=== PATIENT | female | born 1950 | race Caucasian/White ===

== ENCOUNTER 2019-02-04 11:21 | Observation (INO) ==
[2019-02-04] MEDS ORDERED: 0.9 % Sodium Chloride 1,000 ML IVC ONE ×2 (11:56→13:06)
[2019-02-04 12:33] LABS: Hematocrit 35.4 % (35.3-44.9); Hemoglobin 11.6 g/dL (11.5-15.4); Mean Corpuscular HGB Conc 32.8 g/dL (31.6-35.5); Mean Corpuscular Hemoglobin 30.9 pg (28.0-33.3); Mean Corpuscular Volume 94.1 fL (83.0-100.0); Platelet Count 222 K/mcL (140-400); Red Blood Count 3.76 M/mcL (3.82-4.97); Red Cell Distribution Width 13.3 % (11.5-14.5)
[2019-02-04 12:40] LABS: INR 1.2; Prothrombin Time 13.8 Seconds (9.4-12.1)
[2019-02-04 12:52] LABS: Albumin/Globulin Ratio 1.4 (1.1-2.2); Bilirubin,Direct 0.2 mg/dL (0.0-0.2); Bilirubin,Indirect 0.7 mg/dL (0.0-1.0); Bilirubin,Total 0.9 mg/dL (0.3-1.0); Calcium 8.7 mg/dL (8.6-10.3); Globulin 2.9 g/dL (2.4-3.5); Phosphorous 3.4 mg/dL (2.7-4.5); Potassium 3.8 mEq/L (3.5-5.1); Total Protein 6.9 g/dL (6.4-8.9); Troponin I 0.03 ng/mL (< 0.04)
[2019-02-04] MEDS ORDERED: cefTRIAXone 1,000 MG in Water for inj. (sterile) 10 ML IVP ONE (13:01)
[2019-02-04] MEDS ORDERED: Azithromycin 500 MG in 0.9 % Sodium Chloride 250 ML IVPB ONE (13:01)
[2019-02-04 13:39] LABS: Eosinophils # 3.5 K/mcL (0.0-0.6); Lymphocytes # 4.2 K/mcL (0.6-4.6); Monocytes # 1.5 K/mcL (0.0-1.3); Neutrophils # 12.8 K/mcL (1.6-8.9)
[2019-02-04 13:40] LABS: Platelet Estimate Normal (Normal)
[2019-02-04 14:43] LABS: Bilirubin,Urine Negative (Negative); Blood,Urine Negative (Negative); Clarity,Urine Clear (Clear); Color,Urine Yellow (Yellow); Glucose,Urine (UA) Normal (Normal); Ketones,Urine Negative (Negative); Leukocyte Esterase,Urine Negative (Negative); Nitrite,Urine Negative (Negative); PH,Urine 6.5 pH Units (5.0-8.0); Protein,Urine Negative (Neg-Trace); Specific Gravity,Urine 1.009 (1.010-1.025); Urobilinogen,Urine Normal (Normal)
[2019-02-04] MEDS ORDERED: Naloxone 0.4 MG/ML INJ IVP PRN (15:14)
[2019-02-04] MEDS ORDERED: *HR* Dextrose 50 % in Water (Syg) 50 ML SYRINGE IVP PRN (18:03)
[2019-02-04] MEDS ORDERED: Dextrose Gel 15 GM/37.5 ML TUBE PO PRN ×2 (18:03)
[2019-02-04] MEDS ORDERED: D5% in Water 1,000 ML IVC PRN (18:03)
[2019-02-04] MEDS: MetroNIDAZOLE 500 MG/100 ML 500 MG/100 ML BAG IVPB SCH (18:53)
[2019-02-04] MEDS: Ipratropium Neb 0.5 MG NEBULIZER IH SCH ×2 (20:16→22:15)
[2019-02-04] MEDS: *HR* LORazepam 1 MG TABLET PO SCH (20:56)
[2019-02-04] MEDS: *HR* Heparin 5,000 UNIT/ML VIAL SQ SCH (20:56)
[2019-02-04] MEDS: Gabapentin 300 MG CAPSULE PO SCH (20:56)
[2019-02-04] MEDS: Insulin LISPRO 300 UNITS/3 ML VIAL SQ SCH (20:57)
[2019-02-04] MEDS ORDERED: Ipratropium Neb 0.5 MG NEBULIZER IH SCH (22:00)
[2019-02-04] MEDS: Budesonide/Formoterol 160/4.5 1 PUFF INH IH SCH (22:15)
[2019-02-05] MEDS: MetroNIDAZOLE 500 MG/100 ML 500 MG/100 ML BAG IVPB SCH ×2 (00:06→08:19)
[2019-02-05] MEDS: Ipratropium Neb 0.5 MG NEBULIZER IH SCH ×4 (04:24→21:45)
[2019-02-05] MEDS: *HR* Heparin 5,000 UNIT/ML VIAL SQ SCH ×3 (05:02→21:33)
[2019-02-05 05:24] LABS: Basophils # 0.1 K/mcL (0.0-0.2); Basophils % 0.3 %; Eosinophils % 25.9 %; Hematocrit 33.9 % (35.3-44.9); Hemoglobin 11.1 g/dL (11.5-15.4); Immature Granulocytes % 0.5 % (0-4); Lymphocytes # 2.3 K/mcL (0.6-4.6); Lymphocytes % 14.7 %; Mean Corpuscular HGB Conc 32.7 g/dL (31.6-35.5); Mean Corpuscular Volume 94.7 fL (83.0-100.0); Mean Platelet Volume 11.1 fL (9.4-12.4); Monocytes # 1.2 K/mcL (0.0-1.3); Monocytes % 7.6 %; Neutrophils # 7.8 K/mcL (1.6-8.9); Platelet Count 201 K/mcL (140-400); Red Blood Count 3.58 M/mcL (3.82-4.97); Red Cell Distribution Width 13.3 % (11.5-14.5); White Blood Count 15.3 K/mcL (4.3-11.1)
[2019-02-05 05:47] LABS: Calcium 8.3 mg/dL (8.6-10.3); Magnesium 2.2 mg/dL (1.6-2.6); Potassium 3.8 mEq/L (3.5-5.1)
[2019-02-05 06:01] LABS: Platelet Estimate Normal (Normal)
[2019-02-05] MEDS: Insulin LISPRO 300 UNITS/3 ML VIAL SQ SCH ×4 (08:06→21:33)
[2019-02-05] MEDS: *HR* LORazepam 1 MG TABLET PO SCH ×3 (08:18→21:32)
[2019-02-05] MEDS: Gabapentin 300 MG CAPSULE PO SCH ×3 (08:18→21:30)
[2019-02-05] MEDS: Isosorbide MONOnitrate (24 HR) 30 MG TAB.ER.24H PO SCH (08:18)
[2019-02-05] MEDS: BuPROPion XL (24 HR) 150 MG TABLET PO SCH (08:18)
[2019-02-05] MEDS: Primidone 50 MG TABLET PO SCH (08:18)
[2019-02-05] MEDS: MethylPREDNISolone 40 MG/ML VIAL IVP SCH (08:18)
[2019-02-05] MEDS: Aspirin 81 MG TAB.CHEW PO SCH (08:18)
[2019-02-05] MEDS: traMADol 50 MG TABLET PO PRN ×2 (08:18→21:30)
[2019-02-05] MEDS: Famotidine 20 MG TABLET PO SCH (08:18)
[2019-02-05] MEDS ORDERED: levoFLOXacin 750 MG/150 ML 750 MG/150 ML BAG IVPB SCH (09:00)
[2019-02-05] MEDS ORDERED: NON-FORMULARY MEDICATION 1 EACH EACH (Mirabegron [Myrbetriq] 50 MG) PO SCH (09:00)
[2019-02-05] MEDS: Azithromycin 500 MG in 0.9 % Sodium Chloride 250 ML IVPB SCH (09:47)
[2019-02-05] MEDS: Budesonide/Formoterol 160/4.5 1 PUFF INH IH SCH ×2 (10:38→21:45)
[2019-02-05] MEDS: cefTRIAXone 2,000 MG in 0.9 % Sodium Chloride Mini Bag 100 ML IVPB SCH (12:00)
[2019-02-06] MEDS: Ipratropium Neb 0.5 MG NEBULIZER IH SCH ×4 (03:55→22:34)
[2019-02-06 04:17] LABS: Basophils # 0.1 K/mcL (0.0-0.2); Basophils % 0.4 %; Eosinophils # 0.1 K/mcL (0.0-0.6); Eosinophils % 0.4 %; Hematocrit 33.7 % (35.3-44.9); Hemoglobin 10.8 g/dL (11.5-15.4); Immature Granulocytes % 1.8 % (0-4); Lymphocytes # 2.3 K/mcL (0.6-4.6); Lymphocytes % 17.3 %; Mean Corpuscular Hemoglobin 30.5 pg (28.0-33.3); Mean Corpuscular Volume 95.2 fL (83.0-100.0); Mean Platelet Volume 10.8 fL (9.4-12.4); Monocytes # 1.1 K/mcL (0.0-1.3); Monocytes % 8.3 %; Neutrophils # 9.3 K/mcL (1.6-8.9); Platelet Count 246 K/mcL (140-400); Red Blood Count 3.54 M/mcL (3.82-4.97); Red Cell Distribution Width 12.8 % (11.5-14.5); Segmented Neutrophils % 71.8 %
[2019-02-06 04:40] LABS: BUN/Creatinine Ratio 16 (6-26); Blood Urea Nitrogen 17 mg/dL (8-23); Calcium 9.1 mg/dL (8.6-10.3); Carbon Dioxide 24 mEq/L (23-29); Chloride 107 mEq/L (98-107); Glucose 140 mg/dL (70-105); Osmolality,Calculated 288 (280-300); Potassium 4.3 mEq/L (3.5-5.1); Sodium 137 mEq/L (136-145); eGFR For African Americans > 60 (> 60); eGFR For Non-African Americans 51 (> 60)
[2019-02-06] MEDS: *HR* Heparin 5,000 UNIT/ML VIAL SQ SCH ×3 (05:34→20:39)
[2019-02-06] MEDS: Isosorbide MONOnitrate (24 HR) 30 MG TAB.ER.24H PO SCH (08:30)
[2019-02-06] MEDS: BuPROPion XL (24 HR) 150 MG TABLET PO SCH (08:31)
[2019-02-06] MEDS: Gabapentin 300 MG CAPSULE PO SCH ×3 (08:31→20:39)
[2019-02-06] MEDS: Aspirin 81 MG TAB.CHEW PO SCH (08:31)
[2019-02-06] MEDS: Famotidine 20 MG TABLET PO SCH (08:31)
[2019-02-06] MEDS: MethylPREDNISolone 40 MG/ML VIAL IVP SCH (08:31)
[2019-02-06] MEDS: *HR* LORazepam 1 MG TABLET PO SCH ×3 (08:31→20:39)
[2019-02-06] MEDS: Insulin LISPRO 300 UNITS/3 ML VIAL SQ SCH ×4 (08:32→20:38)
[2019-02-06] MEDS: Azithromycin 500 MG in 0.9 % Sodium Chloride 250 ML IVPB SCH (08:32)
[2019-02-06] MEDS: cefTRIAXone 2,000 MG in 0.9 % Sodium Chloride Mini Bag 100 ML IVPB SCH (08:32)
[2019-02-06] MEDS: Budesonide/Formoterol 160/4.5 1 PUFF INH IH SCH ×2 (10:49→22:34)
[2019-02-06] MEDS: traMADol 50 MG TABLET PO PRN (11:03)
[2019-02-07] MEDS: Ipratropium Neb 0.5 MG NEBULIZER IH SCH ×4 (04:11→21:43)
[2019-02-07] MEDS: *HR* Heparin 5,000 UNIT/ML VIAL SQ SCH ×3 (05:04→20:46)
[2019-02-07 06:30] LABS: Basophils # 0.1 K/mcL (0.0-0.2); Basophils % 0.4 %; Eosinophils # 0.1 K/mcL (0.0-0.6); Eosinophils % 0.4 %; Hematocrit 34.9 % (35.3-44.9); Immature Granulocytes % 2.4 % (0-4); Lymphocytes # 3.6 K/mcL (0.6-4.6); Lymphocytes % 25.4 %; Mean Corpuscular HGB Conc 31.5 g/dL (31.6-35.5); Mean Corpuscular Hemoglobin 30.4 pg (28.0-33.3); Mean Corpuscular Volume 96.4 fL (83.0-100.0); Mean Platelet Volume 10.5 fL (9.4-12.4); Monocytes # 0.8 K/mcL (0.0-1.3); Neutrophils # 9.2 K/mcL (1.6-8.9); Platelet Count 285 K/mcL (140-400); Red Blood Count 3.62 M/mcL (3.82-4.97); Red Cell Distribution Width 13.2 % (11.5-14.5); Segmented Neutrophils % 65.4 %; White Blood Count 14.1 K/mcL (4.3-11.1)
[2019-02-07 06:53] LABS: BUN/Creatinine Ratio 17 (6-26); Blood Urea Nitrogen 18 mg/dL (8-23); Calcium 9.2 mg/dL (8.6-10.3); Carbon Dioxide 23 mEq/L (23-29); Chloride 110 mEq/L (98-107); Glucose 128 mg/dL (70-105); Osmolality,Calculated 296 (280-300); Potassium 4.1 mEq/L (3.5-5.1); Sodium 141 mEq/L (136-145); eGFR For African Americans > 60 (> 60); eGFR For Non-African Americans 52 (> 60)
[2019-02-07] MEDS: cefTRIAXone 2,000 MG in 0.9 % Sodium Chloride Mini Bag 100 ML IVPB SCH (08:16)
[2019-02-07] MEDS: Famotidine 20 MG TABLET PO SCH (08:16)
[2019-02-07] MEDS: Isosorbide MONOnitrate (24 HR) 30 MG TAB.ER.24H PO SCH (08:16)
[2019-02-07] MEDS: Insulin LISPRO 300 UNITS/3 ML VIAL SQ SCH ×4 (08:16→20:46)
[2019-02-07] MEDS: MethylPREDNISolone 40 MG/ML VIAL IVP SCH (08:16)
[2019-02-07] MEDS: Gabapentin 300 MG CAPSULE PO SCH ×3 (08:17→20:46)
[2019-02-07] MEDS: BuPROPion XL (24 HR) 150 MG TABLET PO SCH (08:17)
[2019-02-07] MEDS: Aspirin 81 MG TAB.CHEW PO SCH (08:17)
[2019-02-07] MEDS: *HR* LORazepam 1 MG TABLET PO SCH ×3 (08:17→20:46)
[2019-02-07] MEDS: Benzonatate 100 MG CAPSULE PO PRN ×2 (08:26→16:16)
[2019-02-07] MEDS: Azithromycin 500 MG in 0.9 % Sodium Chloride 250 ML IVPB SCH (08:39)
[2019-02-07] MEDS: Budesonide/Formoterol 160/4.5 1 PUFF INH IH SCH ×2 (10:36→21:43)
[2019-02-08] MEDS: Ipratropium Neb 0.5 MG NEBULIZER IH SCH ×2 (04:01→09:58)
[2019-02-08] MEDS: *HR* Heparin 5,000 UNIT/ML VIAL SQ SCH (05:28)
[2019-02-08 05:50] LABS: Basophils # 0.1 K/mcL (0.0-0.2); Basophils % 0.5 %; Eosinophils # 0.1 K/mcL (0.0-0.6); Eosinophils % 0.6 %; Hematocrit 36.6 % (35.3-44.9); Hemoglobin 11.6 g/dL (11.5-15.4); Immature Granulocytes % 3.7 % (0-4); Lymphocytes # 4.8 K/mcL (0.6-4.6); Lymphocytes % 33.4 %; Mean Corpuscular HGB Conc 31.7 g/dL (31.6-35.5); Mean Corpuscular Hemoglobin 30.3 pg (28.0-33.3); Mean Corpuscular Volume 95.6 fL (83.0-100.0); Mean Platelet Volume 10.4 fL (9.4-12.4); Monocytes % 6.8 %; Neutrophils # 7.9 K/mcL (1.6-8.9); Platelet Count 295 K/mcL (140-400); Red Blood Count 3.83 M/mcL (3.82-4.97); Red Cell Distribution Width 13.3 % (11.5-14.5); White Blood Count 14.3 K/mcL (4.3-11.1)
[2019-02-08 06:14] LABS: Calcium 9.3 mg/dL (8.6-10.3); Potassium 4.1 mEq/L (3.5-5.1)
[2019-02-08 07:05] VITALS: BP 138/77
[2019-02-08] MEDS: Azithromycin 500 MG in 0.9 % Sodium Chloride 250 ML IVPB SCH (08:11)
[2019-02-08] MEDS: MethylPREDNISolone 40 MG/ML VIAL IVP SCH (08:12)
[2019-02-08] MEDS: Benzonatate 100 MG CAPSULE PO PRN (08:12)
[2019-02-08] MEDS: cefTRIAXone 2,000 MG in 0.9 % Sodium Chloride Mini Bag 100 ML IVPB SCH (08:12)
[2019-02-08] MEDS: BuPROPion XL (24 HR) 150 MG TABLET PO SCH (08:13)
[2019-02-08] MEDS: Aspirin 81 MG TAB.CHEW PO SCH (08:13)
[2019-02-08] MEDS: Isosorbide MONOnitrate (24 HR) 30 MG TAB.ER.24H PO SCH (08:13)
[2019-02-08] MEDS: Famotidine 20 MG TABLET PO SCH (08:13)
[2019-02-08] MEDS: *HR* LORazepam 1 MG TABLET PO SCH (08:13)
[2019-02-08] MEDS: Insulin LISPRO 300 UNITS/3 ML VIAL SQ SCH (08:13)
[2019-02-08] MEDS: Gabapentin 300 MG CAPSULE PO SCH (08:13)
[2019-02-08] MEDS: Primidone 50 MG TABLET PO SCH (08:25)
[2019-02-08] MEDS: Budesonide/Formoterol 160/4.5 1 PUFF INH IH SCH (09:59)
[2019-02-09] MEDS ORDERED: Azithromycin 250 MG TABLET PO SCH (09:00)
== END 2019-02-08 10:13 | disposition home or self-care (01) ==
LOC: EMEROOARM 11:21 → 2ANU 11:21 → SUATTDRO 14:51 → 2ANU 15:46
PROVIDERS: ADMIT Internal Medicine; ATTEND Internal Medicine

== ENCOUNTER 2019-04-27 07:53 | Inpatient (IN) ==
[2019-04-27] MEDS ORDERED: Albuterol 2.5 MG/3 ML NEBULIZER IH PRN ×2 (08:16→09:54)
[2019-04-27] MEDS ORDERED: CeFAZolin Syr 2,000MG/20 ML 2,000 MG/20 ML SYRINGE IVPB ONE (08:16)
[2019-04-27] MEDS ORDERED: Ringers Solution, Lactated 1,000 ML IVC SCH (08:30)
[2019-04-27] MEDS ORDERED: *HR* Succinylcholine 200 MG/10 ML VIAL IVP ONE (08:59)
[2019-04-27] MEDS ORDERED: Lidocaine -MPF 2% 2 ML VIAL ONE (08:59)
[2019-04-27] MEDS ORDERED: Dexamethasone 4 MG/ML VIAL ONE (08:59)
[2019-04-27] MEDS ORDERED: Lidocaine HCL 4 ML Topical Solution (Laryng-O-Jet Kit Sterile Pak) TP ONE (08:59)
[2019-04-27] MEDS ORDERED: Ondansetron 4 MG/2 ML VIAL ONE (08:59)
[2019-04-27] MEDS ORDERED: *HR* FentaNYL (PF) 100 MCG/2 ML VIAL ONE ×2 (09:04→16:05)
[2019-04-27] MEDS ORDERED: *HR* Remifentanil 1 MG VIAL IVP ONE (09:04)
[2019-04-27] MEDS ORDERED: *HR* Propofol 200 MG/20 ML VIAL IVP ONE ×2 (09:04→15:46)
[2019-04-27] MEDS ORDERED: Acetaminophen IV 1,000 MG/100 ML INFUS..BTL IVPB ONE (09:13)
[2019-04-27] MEDS ORDERED: Ipratropium Neb 0.5 MG NEBULIZER IH PRN ×2 (09:54→17:37)
[2019-04-27] MEDS ORDERED: *HR* Meperidine 25 MG/ML SYRINGE IVP PRN (09:54)
[2019-04-27] MEDS ORDERED: Ondansetron 4 MG/2 ML VIAL IVP ONE (09:54)
[2019-04-27] MEDS ORDERED: *HR* OxyCODONE Immed Rel 5 MG TABLET PO PRN (09:54)
[2019-04-27] MEDS ORDERED: Bacitracin 50,000 UNIT, Polymyxin B Sulfate 500,000 UNIT, Sodium Chloride IRRigation 1,... IR ONE (10:10)
[2019-04-27] MEDS ORDERED: EPHEDrine 50 MG/ML VIAL ONE ×2 (11:02→13:56)
[2019-04-27] MEDS ORDERED: Propofol 500 MG/50 ML INFUS..BTL ONE (11:21)
[2019-04-27] MEDS ORDERED: Clindamycin 900 MG/50 ML 900 MG/50 ML IV.SOLN IVPB ONE (12:07)
[2019-04-27] MEDS ORDERED: *HR* PHENYLEPHRINE 1,000 MCG/10 ML SYRINGE IVP ONE ×4 (13:12→16:13)
[2019-04-27] MEDS: *HR* FentaNYL (PF) 100 MCG/2 ML VIAL IVP PRN ×2 (16:42→16:54)
[2019-04-27] MEDS ORDERED: Acetaminophen 325 MG TABLET PO PRN (17:37)
[2019-04-27] MEDS ORDERED: Naloxone 0.4 MG/ML INJ IVP PRN (17:37)
[2019-04-27] MEDS ORDERED: DICLOFENAC SODIUM TP PRN (17:37)
[2019-04-27] MEDS ORDERED: *HR* LORazepam 1 MG TABLET PO PRN (17:37)
[2019-04-27] MEDS ORDERED: Ondansetron 4 MG/2 ML VIAL IVP PRN (17:37)
[2019-04-27] MEDS: Budesonide/Formoterol 160/4.5 1 PUFF INH IH SCH (20:19)
[2019-04-27] MEDS: *HR* OxyCODONE Immed Rel 5 MG TABLET PO PRN (20:59)
[2019-04-27] MEDS: carvediloL 6.25 MG TABLET PO SCH (21:57)
[2019-04-27] MEDS: (Mirabegron [Myrbetriq] 50 MG) PO SCH (21:58)
[2019-04-27] MEDS: FluocinoNIDE 0.05% CRM 15 GM TUBE TP SCH (21:58)
[2019-04-28] MEDS ORDERED: Clindamycin 600 MG/50 ML 600 MG/50 ML IV.SOLN IVPB SCH
[2019-04-28] MEDS: Clindamycin 600 MG/50 ML 600 MG/50 ML IV.SOLN IVPB SCH ×2 (00:05→08:17)
[2019-04-28 02:29] LABS: Basophils % 0.3 %; Hematocrit 27.3 % (35.3-44.9); Immature Granulocytes % 0.5 % (0-4); Lymphocytes # 1.3 K/mcL (0.6-4.6); Mean Corpuscular HGB Conc 30.8 g/dL (31.6-35.5); Mean Corpuscular Hemoglobin 29.8 pg (28.0-33.3); Mean Corpuscular Volume 96.8 fL (83.0-100.0); Mean Platelet Volume 11.2 fL (9.4-12.4); Monocytes # 0.6 K/mcL (0.0-1.3); Monocytes % 5.2 %; Neutrophils # 9.6 K/mcL (1.6-8.9); Platelet Count 208 K/mcL (140-400); Red Blood Count 2.82 M/mcL (3.82-4.97); Red Cell Distribution Width 13.9 % (11.5-14.5); White Blood Count 11.6 K/mcL (4.3-11.1)
[2019-04-28 02:31] LABS: Hemoglobin 8.4 g/dL (11.5-15.4)
[2019-04-28] MEDS: Ringers Solution, Lactated 1,000 ML IVC SCH (06:04)
[2019-04-28] MEDS: carvediloL 6.25 MG TABLET PO SCH ×3 (07:05→15:32)
[2019-04-28] MEDS: Tiotropium 18 MCG inhalation IH SCH (07:50)
[2019-04-28] MEDS: Budesonide/Formoterol 160/4.5 1 PUFF INH IH SCH ×2 (07:50→21:33)
[2019-04-28] MEDS: Aspirin 81 MG TAB.CHEW PO SCH (08:21)
[2019-04-28] MEDS: BuPROPion XL (24 HR) 150 MG TABLET PO SCH (08:31)
[2019-04-28] MEDS: *HR* OxyCODONE Immed Rel 5 MG TABLET PO PRN ×3 (08:31→21:56)
[2019-04-28] MEDS: Famotidine 20 MG TABLET PO SCH (08:31)
[2019-04-28] MEDS: Isosorbide MONOnitrate (24 HR) 30 MG TAB.ER.24H PO SCH (08:31)
[2019-04-28] MEDS: FluocinoNIDE 0.05% CRM 15 GM TUBE TP SCH ×2 (08:31→21:44)
[2019-04-28] MEDS ORDERED: Primidone 50 MG TABLET PO SCH (16:40)
[2019-04-28] MEDS: (Mirabegron [Myrbetriq] 50 MG) PO SCH (17:05)
[2019-04-29] MEDS: *HR* OxyCODONE Immed Rel 5 MG TABLET PO PRN ×3 (06:39→17:27)
[2019-04-29] MEDS: carvediloL 6.25 MG TABLET PO SCH ×2 (10:03→17:28)
[2019-04-29] MEDS: Isosorbide MONOnitrate (24 HR) 30 MG TAB.ER.24H PO SCH (10:03)
[2019-04-29] MEDS: Famotidine 20 MG TABLET PO SCH (10:03)
[2019-04-29] MEDS: Aspirin 81 MG TAB.CHEW PO SCH (10:03)
[2019-04-29] MEDS: BuPROPion XL (24 HR) 150 MG TABLET PO SCH (10:03)
[2019-04-29] MEDS: Budesonide/Formoterol 160/4.5 1 PUFF INH IH SCH ×2 (10:26→22:56)
[2019-04-29] MEDS: Tiotropium 18 MCG inhalation IH SCH (10:26)
[2019-04-29 10:33] LABS: Basophils # 0.1 K/mcL (0.0-0.2); Basophils % 0.7 %; Eosinophils # 0.6 K/mcL (0.0-0.6); Eosinophils % 3.9 %; Hematocrit 26.1 % (35.3-44.9); Hemoglobin 8.2 g/dL (11.5-15.4); Immature Granulocytes % 0.5 % (0-4); Lymphocytes # 2.9 K/mcL (0.6-4.6); Lymphocytes % 19.3 %; Mean Corpuscular HGB Conc 31.4 g/dL (31.6-35.5); Mean Corpuscular Hemoglobin 29.4 pg (28.0-33.3); Mean Corpuscular Volume 93.5 fL (83.0-100.0); Mean Platelet Volume 11.5 fL (9.4-12.4); Monocytes # 1.2 K/mcL (0.0-1.3); Monocytes % 8.2 %; Neutrophils # 10.1 K/mcL (1.6-8.9); Platelet Count 252 K/mcL (140-400); Red Blood Count 2.79 M/mcL (3.82-4.97); Red Cell Distribution Width 14.2 % (11.5-14.5); Segmented Neutrophils % 67.4 %; White Blood Count 14.9 K/mcL (4.3-11.1)
[2019-04-29 10:42] LABS: BUN/Creatinine Ratio 13 (6-26); Blood Urea Nitrogen 14 mg/dL (8-23); Calcium 8.6 mg/dL (8.6-10.3); Carbon Dioxide 25 mEq/L (23-29); Chloride 103 mEq/L (98-107); Glucose 123 mg/dL (70-105); Osmolality,Calculated 288 (280-300); Potassium 3.5 mEq/L (3.5-5.1); Sodium 138 mEq/L (136-145); eGFR For African Americans > 60 (> 60); eGFR For Non-African Americans 50 (> 60)
[2019-04-29] MEDS ORDERED: Methyl Salicylate/Menthol 28 GM TUBE TP PRN (12:59)
[2019-04-29] MEDS: FluocinoNIDE 0.05% CRM 15 GM TUBE TP SCH ×2 (17:24→21:45)
[2019-04-29] MEDS: (Mirabegron [Myrbetriq] 50 MG) PO SCH (20:03)
[2019-04-29] MEDS: Ringers Solution, Lactated 1,000 ML IVC SCH ×2 (23:06→23:07)
[2019-04-30] MEDS: Ringers Solution, Lactated 1,000 ML IVC SCH (02:47)
[2019-04-30] MEDS: *HR* OxyCODONE Immed Rel 5 MG TABLET PO PRN ×2 (02:49→08:21)
[2019-04-30] MEDS: carvediloL 6.25 MG TABLET PO SCH (08:20)
[2019-04-30] MEDS: BuPROPion XL (24 HR) 150 MG TABLET PO SCH (08:20)
[2019-04-30] MEDS: Isosorbide MONOnitrate (24 HR) 30 MG TAB.ER.24H PO SCH (08:20)
[2019-04-30] MEDS: Aspirin 81 MG TAB.CHEW PO SCH (08:21)
[2019-04-30] MEDS: FluocinoNIDE 0.05% CRM 15 GM TUBE TP SCH (08:21)
[2019-04-30] MEDS ORDERED: Famotidine 20 MG TABLET PO SCH (09:00)
[2019-04-30 10:27] LABS: Basophils # 0.1 K/mcL (0.0-0.2); Basophils % 0.5 %; Eosinophils # 0.7 K/mcL (0.0-0.6); Eosinophils % 5.6 %; Hematocrit 23.7 % (35.3-44.9); Hemoglobin 7.4 g/dL (11.5-15.4); Immature Granulocytes % 0.6 % (0-4); Lymphocytes # 2.6 K/mcL (0.6-4.6); Mean Corpuscular HGB Conc 31.2 g/dL (31.6-35.5); Mean Corpuscular Hemoglobin 29.2 pg (28.0-33.3); Mean Corpuscular Volume 93.7 fL (83.0-100.0); Mean Platelet Volume 11.1 fL (9.4-12.4); Monocytes # 0.9 K/mcL (0.0-1.3); Monocytes % 7.2 %; Neutrophils # 8.2 K/mcL (1.6-8.9); Platelet Count 221 K/mcL (140-400); Red Blood Count 2.53 M/mcL (3.82-4.97); Segmented Neutrophils % 65.1 %; White Blood Count 12.5 K/mcL (4.3-11.1)
[2019-04-30 10:37] VITALS: BP 91/55
[2019-04-30 10:45] LABS: Calcium 8.6 mg/dL (8.6-10.3); Potassium 3.6 mEq/L (3.5-5.1)
[2019-04-30] MEDS: Tiotropium 18 MCG inhalation IH SCH (10:48)
[2019-04-30] MEDS: Budesonide/Formoterol 160/4.5 1 PUFF INH IH SCH (10:48)
[2019-04-30] MEDS ORDERED: Ringers Solution, Lactated 500 ML IVC ONE (11:47)
== END 2019-04-30 13:20 | DRG 454 ==
LOC: SAMDAY 07:53 → 3NENU 17:28
PROVIDERS: ADMIT Orthopaedic Surgery Orthopaedic Surgery of the Spine; ATTEND Orthopaedic Surgery Orthopaedic Surgery of the Spine

== ENCOUNTER 2020-01-17 14:31 | Inpatient (IN) ==
[2020-01-17] MEDS ORDERED: *HR* Promethazine 25 MG/ML VIAL IVP PRN (18:35)
[2020-01-17] MEDS ORDERED: Aspirin 325 MG TABLET PO ONE (18:39)
[2020-01-17 19:38] LABS: Phosphorous 3.4 mg/dL (2.7-4.5)
[2020-01-18] MEDS ORDERED: Perflutren Lipid Microsphere 1.3 ML in 0.9 % Sodium Chloride 8.7 ML IVP PRN (00:34)
[2020-01-18 01:45] LABS: Hematocrit 41.1 % (35.3-44.9); Hemoglobin 13.1 g/dL (11.5-15.4); Mean Corpuscular HGB Conc 31.9 g/dL (31.6-35.5); Mean Corpuscular Hemoglobin 30.3 pg (28.0-33.3); Mean Corpuscular Volume 95.1 fL (83.0-100.0); Mean Platelet Volume 10.8 fL (9.4-12.4); Platelet Count 178 K/mcL (140-400); Red Blood Count 4.32 M/mcL (3.82-4.97); Red Cell Distribution Width 13.4 % (11.5-14.5)
[2020-01-18 01:49] LABS: BUN/Creatinine Ratio 24 (6-26); Blood Urea Nitrogen 24 mg/dL (8-23); Calcium 8.5 mg/dL (8.6-10.3); Carbon Dioxide 21 mEq/L (23-29); Chloride 105 mEq/L (98-107); Glucose 99 mg/dL (70-105); Osmolality,Calculated 284 (280-300); Potassium 3.5 mEq/L (3.5-5.1); Sodium 135 mEq/L (136-145); eGFR For African Americans > 60 (> 60); eGFR For Non-African Americans 56 (> 60)
[2020-01-18] MEDS ORDERED: *HR* Heparin 5,000 UNIT/ML VIAL IVP PRN ×2 (04:57)
[2020-01-18] MEDS: *HR* HYDROcodone/Acet 10/325 mg TABLET PO PRN (05:30)
[2020-01-18] MEDS: Heparin 25,000UNIT/250ML 1/2NS 25,000 UNIT/250 ML IV.SOLN IVC SCH (05:47)
[2020-01-18] MEDS ORDERED: *HR* Heparin 5,000 UNIT/ML VIAL SQ SCH (06:00)
[2020-01-18] MEDS ORDERED: Dextrose Gel 15 GM/37.5 ML TUBE PO PRN ×2 (06:44)
[2020-01-18] MEDS ORDERED: D5% in Water 1,000 ML IVC PRN (06:44)
[2020-01-18] MEDS ORDERED: *HR* Dextrose 50 % in Water (Vial) 50 ML VIAL IVP PRN (06:44)
[2020-01-18] MEDS: Dexamethasone 4 MG/ML VIAL IVP SCH (07:55)
[2020-01-18] MEDS: Isosorbide MONOnitrate (24 HR) 30 MG TAB.ER.24H PO SCH (07:55)
[2020-01-18] MEDS: Aspirin 81 MG TAB.CHEW PO SCH (07:55)
[2020-01-18] MEDS: Gabapentin 300 MG CAPSULE PO SCH ×3 (07:55→22:48)
[2020-01-18] MEDS: carvediloL 6.25 MG TABLET PO SCH ×2 (07:55→16:55)
[2020-01-18] MEDS: Budesonide/Formoterol 160/4.5 1 PUFF INH IH SCH ×2 (08:44→22:25)
[2020-01-18] MEDS: Tiotropium 18 MCG inhalation IH SCH (08:45)
[2020-01-18] MEDS: Insulin LISPRO 300 UNITS/3 ML VIAL SQ SCH ×2 (13:15→16:55)
[2020-01-18] MEDS ORDERED: 0.9 % Sodium Chloride 250 ML ONE (20:13)
[2020-01-19] MEDS: Insulin LISPRO 300 UNITS/3 ML VIAL SQ SCH ×5 (02:26→20:46)
[2020-01-19 07:22] LABS: Basophils % 0.1 %; Hematocrit 42.1 % (35.3-44.9); Immature Granulocytes % 0.6 % (0-4); Lymphocytes # 2.2 K/mcL (0.6-4.6); Lymphocytes % 20.2 %; Mean Corpuscular HGB Conc 30.9 g/dL (31.6-35.5); Mean Corpuscular Hemoglobin 29.7 pg (28.0-33.3); Mean Corpuscular Volume 96.1 fL (83.0-100.0); Mean Platelet Volume 11.4 fL (9.4-12.4); Monocytes # 0.6 K/mcL (0.0-1.3); Monocytes % 5.9 %; Nucleated Red Blood Cells 0.2 /100 WBC (0); Platelet Count 251 K/mcL (140-400); Red Blood Count 4.38 M/mcL (3.82-4.97); Red Cell Distribution Width 13.3 % (11.5-14.5); Segmented Neutrophils % 73.2 %
[2020-01-19 07:24] LABS: Neutrophils # 7.8 K/mcL (1.6-8.9); White Blood Count 10.7 K/mcL (4.3-11.1)
[2020-01-19 07:53] LABS: Albumin 4.3 g/dL (3.5-5.7); Albumin/Globulin Ratio 1.5 (1.1-2.2); Bilirubin,Total 0.3 mg/dL (0.3-1.0); Calcium 9.5 mg/dL (8.6-10.3); Globulin 2.8 g/dL (2.4-3.5); Potassium 3.5 mEq/L (3.5-5.1); Total Protein 7.1 g/dL (6.4-8.9)
[2020-01-19] MEDS: carvediloL 6.25 MG TABLET PO SCH ×2 (08:47→17:52)
[2020-01-19] MEDS: Aspirin 81 MG TAB.CHEW PO SCH (08:47)
[2020-01-19] MEDS: BuPROPion XL (24 HR) 150 MG TABLET PO SCH (08:47)
[2020-01-19] MEDS: amLODIPine 5 MG TABLET PO SCH (08:47)
[2020-01-19] MEDS: Gabapentin 300 MG CAPSULE PO SCH ×3 (08:47→20:49)
[2020-01-19] MEDS: Isosorbide MONOnitrate (24 HR) 30 MG TAB.ER.24H PO SCH (08:47)
[2020-01-19] MEDS: Dexamethasone 4 MG/ML VIAL IVP SCH ×2 (08:48→20:49)
[2020-01-19] MEDS: Famotidine 20 MG TABLET PO SCH (08:48)
[2020-01-19] MEDS ORDERED: Famotidine 20 MG TABLET PO SCH (09:00)
[2020-01-19] MEDS: Heparin 25,000UNIT/250ML 1/2NS 25,000 UNIT/250 ML IV.SOLN IVC SCH (09:10)
[2020-01-19] MEDS: Primidone 50 MG TABLET PO SCH (09:16)
[2020-01-19] MEDS: Tiotropium 18 MCG inhalation IH SCH (10:07)
[2020-01-19] MEDS: Budesonide/Formoterol 160/4.5 1 PUFF INH IH SCH ×2 (10:08→20:11)
[2020-01-19] MEDS: Azithromycin 250 MG TABLET PO SCH (17:52)
[2020-01-19] MEDS: Furosemide 20 MG/2 ML VIAL IVP SCH (17:53)
[2020-01-19] MEDS ORDERED: 0.9 % Sodium Chloride 250 ML ONE (21:59)
[2020-01-20 07:07] LABS: INR 1.1; Prothrombin Time 12.2 Seconds (9.4-12.1)
[2020-01-20 07:13] LABS: Hematocrit 34.9 % (35.3-44.9); Mean Corpuscular HGB Conc 32.1 g/dL (31.6-35.5); Mean Corpuscular Hemoglobin 30.5 pg (28.0-33.3); Mean Corpuscular Volume 95.1 fL (83.0-100.0); Mean Platelet Volume 11.3 fL (9.4-12.4); Platelet Count 183 K/mcL (140-400); Red Blood Count 3.67 M/mcL (3.82-4.97); Red Cell Distribution Width 13.3 % (11.5-14.5); White Blood Count 9.1 K/mcL (4.3-11.1)
[2020-01-20 07:23] LABS: Alanine Aminotransferase 17 Units/L (7-52); Albumin 3.7 g/dL (3.5-5.7); Albumin/Globulin Ratio 1.3 (1.1-2.2); Alkaline Phosphatase 74 Units/L (34-104); Aspartate Amino Transferase 20 Units/L (13-39); BUN/Creatinine Ratio 34 (6-26); Bilirubin,Direct 0.1 mg/dL (0.0-0.2); Bilirubin,Indirect 0.2 mg/dL (0.0-1.0); Bilirubin,Total 0.3 mg/dL (0.3-1.0); Blood Urea Nitrogen 33 mg/dL (8-23); Carbon Dioxide 19 mEq/L (23-29); Chloride 108 mEq/L (98-107); Globulin 2.8 g/dL (2.4-3.5); Glucose 165 mg/dL (70-105); Osmolality,Calculated 297 (280-300); Potassium 3.8 mEq/L (3.5-5.1); Sodium 138 mEq/L (136-145); Total Protein 6.5 g/dL (6.4-8.9); eGFR For African Americans > 60 (> 60); eGFR For Non-African Americans 57 (> 60)
[2020-01-20 07:28] LABS: Hemoglobin 11.2 g/dL (11.5-15.4)
[2020-01-20] MEDS ORDERED: *HR* Enoxaparin 40 MG/0.4 ML SYRINGE SQ ONE (08:13)
[2020-01-20] MEDS: Azithromycin 250 MG TABLET PO SCH (08:45)
[2020-01-20] MEDS: BuPROPion XL (24 HR) 150 MG TABLET PO SCH (08:46)
[2020-01-20] MEDS: Dexamethasone 4 MG/ML VIAL IVP SCH ×2 (08:46→19:56)
[2020-01-20] MEDS: Furosemide 20 MG/2 ML VIAL IVP SCH (08:46)
[2020-01-20] MEDS: Isosorbide MONOnitrate (24 HR) 30 MG TAB.ER.24H PO SCH (08:46)
[2020-01-20] MEDS: amLODIPine 5 MG TABLET PO SCH (08:46)
[2020-01-20] MEDS: Famotidine 20 MG TABLET PO SCH (08:46)
[2020-01-20] MEDS: Gabapentin 300 MG CAPSULE PO SCH ×3 (08:46→19:56)
[2020-01-20] MEDS: Aspirin 81 MG TAB.CHEW PO SCH (08:46)
[2020-01-20] MEDS: carvediloL 6.25 MG TABLET PO SCH ×2 (08:48→16:23)
[2020-01-20] MEDS: Insulin LISPRO 300 UNITS/3 ML VIAL SQ SCH ×4 (09:14→19:58)
[2020-01-20] MEDS: Budesonide/Formoterol 160/4.5 1 PUFF INH IH SCH ×2 (10:47→22:10)
[2020-01-20] MEDS: Tiotropium 18 MCG inhalation IH SCH (10:48)
[2020-01-20] MEDS ORDERED: Remdesivir 200 MG in 0.9 % Sodium Chloride 210 ML IVPB ONE (17:00)
[2020-01-20] MEDS: Melatonin 3 MG TABLET PO PRN (20:43)
[2020-01-20] MEDS: Benzonatate 100 MG CAPSULE PO PRN (20:43)
[2020-01-21] MEDS: *HR* Enoxaparin 40 MG/0.4 ML SYRINGE SQ SCH (05:02)
[2020-01-21 05:51] LABS: Hematocrit 38.3 % (35.3-44.9); Mean Corpuscular HGB Conc 31.3 g/dL (31.6-35.5); Mean Corpuscular Hemoglobin 30.1 pg (28.0-33.3); Mean Platelet Volume 11.5 fL (9.4-12.4); Platelet Count 197 K/mcL (140-400); Red Blood Count 3.99 M/mcL (3.82-4.97); Red Cell Distribution Width 13.3 % (11.5-14.5); White Blood Count 10.1 K/mcL (4.3-11.1)
[2020-01-21 06:04] LABS: Alanine Aminotransferase 27 Units/L (7-52); Albumin 3.9 g/dL (3.5-5.7); Albumin/Globulin Ratio 1.3 (1.1-2.2); Alkaline Phosphatase 79 Units/L (34-104); Aspartate Amino Transferase 27 Units/L (13-39); BUN/Creatinine Ratio 35 (6-26); Bilirubin,Total 0.4 mg/dL (0.3-1.0); Blood Urea Nitrogen 33 mg/dL (8-23); Calcium 9.4 mg/dL (8.6-10.3); Carbon Dioxide 23 mEq/L (23-29); Chloride 105 mEq/L (98-107); Globulin 3.1 g/dL (2.4-3.5); Glucose 178 mg/dL (70-105); Osmolality,Calculated 298 (280-300); Potassium 3.8 mEq/L (3.5-5.1); Sodium 138 mEq/L (136-145); eGFR For African Americans > 60 (> 60); eGFR For Non-African Americans 60 (> 60)
[2020-01-21 06:08] LABS: INR 1.1; Prothrombin Time 12.3 Seconds (9.4-12.1)
[2020-01-21] MEDS: Insulin LISPRO 300 UNITS/3 ML VIAL SQ SCH ×4 (08:48→20:54)
[2020-01-21] MEDS: Aspirin 81 MG TAB.CHEW PO SCH (09:00)
[2020-01-21] MEDS: BuPROPion XL (24 HR) 150 MG TABLET PO SCH (09:00)
[2020-01-21] MEDS: Famotidine 20 MG TABLET PO SCH (09:00)
[2020-01-21] MEDS: carvediloL 6.25 MG TABLET PO SCH ×2 (09:00→16:08)
[2020-01-21] MEDS: amLODIPine 5 MG TABLET PO SCH (09:00)
[2020-01-21] MEDS: Isosorbide MONOnitrate (24 HR) 30 MG TAB.ER.24H PO SCH (09:00)
[2020-01-21] MEDS: Primidone 50 MG TABLET PO SCH (09:00)
[2020-01-21] MEDS: Dexamethasone 4 MG/ML VIAL IVP SCH ×2 (09:00→20:38)
[2020-01-21] MEDS: Azithromycin 250 MG TABLET PO SCH (09:00)
[2020-01-21] MEDS: Furosemide 20 MG/2 ML VIAL IVP SCH (09:00)
[2020-01-21] MEDS: Gabapentin 300 MG CAPSULE PO SCH ×3 (09:00→20:38)
[2020-01-21] MEDS: Tiotropium 18 MCG inhalation IH SCH (10:31)
[2020-01-21] MEDS: Budesonide/Formoterol 160/4.5 1 PUFF INH IH SCH ×2 (10:31→21:20)
[2020-01-21] MEDS: Benzonatate 100 MG CAPSULE PO PRN ×2 (12:54→22:10)
[2020-01-21] MEDS ORDERED: 0.9 % Sodium Chloride 250 ML ONE (13:41)
[2020-01-21] MEDS: Remdesivir 100 MG in 0.9 % Sodium Chloride 230 ML IVPB SCH (17:09)
[2020-01-22] MEDS: *HR* Enoxaparin 40 MG/0.4 ML SYRINGE SQ SCH (05:10)
[2020-01-22 05:33] LABS: INR 1.2; Prothrombin Time 13.4 Seconds (9.4-12.1)
[2020-01-22 05:45] LABS: Alanine Aminotransferase 35 Units/L (7-52); Albumin 3.7 g/dL (3.5-5.7); Albumin/Globulin Ratio 1.3 (1.1-2.2); Alkaline Phosphatase 79 Units/L (34-104); Aspartate Amino Transferase 26 Units/L (13-39); BUN/Creatinine Ratio 35 (6-26); Bilirubin,Total 0.4 mg/dL (0.3-1.0); Blood Urea Nitrogen 30 mg/dL (8-23); Calcium 9.1 mg/dL (8.6-10.3); Carbon Dioxide 22 mEq/L (23-29); Chloride 106 mEq/L (98-107); Globulin 2.9 g/dL (2.4-3.5); Glucose 202 mg/dL (70-105); Osmolality,Calculated 296 (280-300); Potassium 3.7 mEq/L (3.5-5.1); Sodium 137 mEq/L (136-145); Total Protein 6.6 g/dL (6.4-8.9); eGFR For African Americans > 60 (> 60); eGFR For Non-African Americans > 60 (> 60)
[2020-01-22 06:49] LABS: Hematocrit 35.5 % (35.3-44.9); Hemoglobin 11.4 g/dL (11.5-15.4); Mean Corpuscular HGB Conc 32.1 g/dL (31.6-35.5); Mean Corpuscular Hemoglobin 30.6 pg (28.0-33.3); Mean Corpuscular Volume 95.4 fL (83.0-100.0); Red Blood Count 3.72 M/mcL (3.82-4.97); White Blood Count 12.4 K/mcL (4.3-11.1)
[2020-01-22 06:50] LABS: Mean Platelet Volume 11.7 fL (9.4-12.4); Platelet Count 219 K/mcL (140-400); Red Cell Distribution Width 13.2 % (11.5-14.5)
[2020-01-22] MEDS: BuPROPion XL (24 HR) 150 MG TABLET PO SCH (07:44)
[2020-01-22] MEDS: Azithromycin 250 MG TABLET PO SCH (07:44)
[2020-01-22] MEDS: Insulin LISPRO 300 UNITS/3 ML VIAL SQ SCH ×4 (07:44→20:28)
[2020-01-22] MEDS: amLODIPine 5 MG TABLET PO SCH (07:44)
[2020-01-22] MEDS: Furosemide 20 MG/2 ML VIAL IVP SCH (07:45)
[2020-01-22] MEDS: Gabapentin 300 MG CAPSULE PO SCH ×3 (07:45→19:58)
[2020-01-22] MEDS: Isosorbide MONOnitrate (24 HR) 30 MG TAB.ER.24H PO SCH (07:45)
[2020-01-22] MEDS: Aspirin 81 MG TAB.CHEW PO SCH (07:45)
[2020-01-22] MEDS: Famotidine 20 MG TABLET PO SCH (07:45)
[2020-01-22] MEDS: carvediloL 6.25 MG TABLET PO SCH ×2 (07:45→17:08)
[2020-01-22] MEDS: Dexamethasone 4 MG/ML VIAL IVP SCH ×2 (07:46→19:57)
[2020-01-22] MEDS: Budesonide/Formoterol 160/4.5 1 PUFF INH IH SCH ×2 (11:09→21:29)
[2020-01-22] MEDS: Tiotropium 18 MCG inhalation IH SCH (11:09)
[2020-01-22] MEDS: Remdesivir 100 MG in 0.9 % Sodium Chloride 230 ML IVPB SCH (17:24)
[2020-01-22] MEDS: Benzonatate 100 MG CAPSULE PO PRN (19:58)
[2020-01-22] MEDS: Melatonin 3 MG TABLET PO PRN (19:58)
[2020-01-22] MEDS: *HR* HYDROcodone/Acet 10/325 mg TABLET PO PRN (19:59)
[2020-01-23 02:58] LABS: Hemoglobin 10.9 g/dL (11.5-15.4); Mean Corpuscular HGB Conc 32.1 g/dL (31.6-35.5); Mean Corpuscular Hemoglobin 30.6 pg (28.0-33.3); Mean Corpuscular Volume 95.5 fL (83.0-100.0); Mean Platelet Volume 11.6 fL (9.4-12.4); Platelet Count 205 K/mcL (140-400); Red Blood Count 3.56 M/mcL (3.82-4.97); Red Cell Distribution Width 13.2 % (11.5-14.5); White Blood Count 13.6 K/mcL (4.3-11.1)
[2020-01-23 03:10] LABS: INR 1.2; Prothrombin Time 13.4 Seconds (9.4-12.1)
[2020-01-23 03:17] LABS: Alanine Aminotransferase 35 Units/L (7-52); Albumin 3.3 g/dL (3.5-5.7); Albumin/Globulin Ratio 1.2 (1.1-2.2); Alkaline Phosphatase 75 Units/L (34-104); Aspartate Amino Transferase 22 Units/L (13-39); BUN/Creatinine Ratio 34 (6-26); Bilirubin,Total 0.3 mg/dL (0.3-1.0); Blood Urea Nitrogen 36 mg/dL (8-23); Calcium 8.8 mg/dL (8.6-10.3); Carbon Dioxide 20 mEq/L (23-29); Chloride 106 mEq/L (98-107); Globulin 2.7 g/dL (2.4-3.5); Glucose 276 mg/dL (70-105); Osmolality,Calculated 300 (280-300); Potassium 4.1 mEq/L (3.5-5.1); Sodium 136 mEq/L (136-145); eGFR For African Americans > 60 (> 60); eGFR For Non-African Americans 51 (> 60)
[2020-01-23] MEDS: *HR* Enoxaparin 40 MG/0.4 ML SYRINGE SQ SCH (05:56)
[2020-01-23] MEDS: Benzonatate 100 MG CAPSULE PO PRN ×3 (05:56→21:54)
[2020-01-23] MEDS: Furosemide 20 MG/2 ML VIAL IVP SCH (08:19)
[2020-01-23] MEDS: Azithromycin 250 MG TABLET PO SCH (08:19)
[2020-01-23] MEDS: BuPROPion XL (24 HR) 150 MG TABLET PO SCH (08:19)
[2020-01-23] MEDS: amLODIPine 5 MG TABLET PO SCH (08:19)
[2020-01-23] MEDS: carvediloL 6.25 MG TABLET PO SCH ×2 (08:20→15:47)
[2020-01-23] MEDS: Aspirin 81 MG TAB.CHEW PO SCH (08:20)
[2020-01-23] MEDS: Dexamethasone 4 MG/ML VIAL IVP SCH ×2 (08:20→21:53)
[2020-01-23] MEDS: Gabapentin 300 MG CAPSULE PO SCH ×3 (08:20→21:53)
[2020-01-23] MEDS: Famotidine 20 MG TABLET PO SCH (08:20)
[2020-01-23] MEDS: Isosorbide MONOnitrate (24 HR) 30 MG TAB.ER.24H PO SCH (08:20)
[2020-01-23] MEDS: Insulin LISPRO 300 UNITS/3 ML VIAL SQ SCH ×4 (08:44→21:54)
[2020-01-23] MEDS: Tiotropium 18 MCG inhalation IH SCH ×2 (09:55→15:33)
[2020-01-23] MEDS: Budesonide/Formoterol 160/4.5 1 PUFF INH IH SCH ×2 (09:55→21:44)
[2020-01-23] MEDS: Remdesivir 100 MG in 0.9 % Sodium Chloride 230 ML IVPB SCH (16:28)
[2020-01-23] MEDS: Melatonin 3 MG TABLET PO PRN (21:54)
[2020-01-23] MEDS: *HR* HYDROcodone/Acet 10/325 mg TABLET PO PRN (21:54)
[2020-01-24] MEDS: *HR* Enoxaparin 40 MG/0.4 ML SYRINGE SQ SCH (04:42)
[2020-01-24] MEDS: Benzonatate 100 MG CAPSULE PO PRN ×2 (04:43→19:50)
[2020-01-24 06:12] LABS: Hematocrit 35.9 % (35.3-44.9); Hemoglobin 11.6 g/dL (11.5-15.4); Mean Corpuscular HGB Conc 32.3 g/dL (31.6-35.5); Mean Corpuscular Hemoglobin 30.5 pg (28.0-33.3); Mean Corpuscular Volume 94.5 fL (83.0-100.0); Mean Platelet Volume 11.3 fL (9.4-12.4); Platelet Count 252 K/mcL (140-400); Red Cell Distribution Width 13.1 % (11.5-14.5); White Blood Count 16.1 K/mcL (4.3-11.1)
[2020-01-24 06:14] LABS: INR 1.2; Prothrombin Time 13.5 Seconds (9.4-12.1)
[2020-01-24 06:26] LABS: Alanine Aminotransferase 27 Units/L (7-52); Albumin 3.4 g/dL (3.5-5.7); Albumin/Globulin Ratio 1.2 (1.1-2.2); Alkaline Phosphatase 76 Units/L (34-104); Aspartate Amino Transferase 14 Units/L (13-39); BUN/Creatinine Ratio 32 (6-26); Bilirubin,Total 0.4 mg/dL (0.3-1.0); Blood Urea Nitrogen 29 mg/dL (8-23); Calcium 8.9 mg/dL (8.6-10.3); Carbon Dioxide 21 mEq/L (23-29); Chloride 106 mEq/L (98-107); Globulin 2.8 g/dL (2.4-3.5); Glucose 201 mg/dL (70-105); Lactate Dehydrogenase 285 Units/L (140-271); Magnesium 2.1 mg/dL (1.6-2.6); Osmolality,Calculated 292 (280-300); Potassium 4.2 mEq/L (3.5-5.1); Sodium 135 mEq/L (136-145); Total Protein 6.2 g/dL (6.4-8.9); eGFR For African Americans > 60 (> 60); eGFR For Non-African Americans > 60 (> 60)
[2020-01-24 06:39] LABS: Ferritin 650 ng/mL (10-120)
[2020-01-24 07:46] LABS: C-Reactive Protein < 5 mg/L (Less than 10)
[2020-01-24] MEDS: Dexamethasone 4 MG/ML VIAL IVP SCH (08:01)
[2020-01-24] MEDS: carvediloL 6.25 MG TABLET PO SCH ×2 (08:02→15:27)
[2020-01-24] MEDS: BuPROPion XL (24 HR) 150 MG TABLET PO SCH (08:03)
[2020-01-24] MEDS: Gabapentin 300 MG CAPSULE PO SCH ×3 (08:03→19:49)
[2020-01-24] MEDS: amLODIPine 5 MG TABLET PO SCH (08:03)
[2020-01-24] MEDS: Isosorbide MONOnitrate (24 HR) 30 MG TAB.ER.24H PO SCH (08:03)
[2020-01-24] MEDS: Azithromycin 250 MG TABLET PO SCH (08:03)
[2020-01-24] MEDS: Famotidine 20 MG TABLET PO SCH (08:03)
[2020-01-24] MEDS: Primidone 50 MG TABLET PO SCH (08:05)
[2020-01-24] MEDS: Aspirin 81 MG TAB.CHEW PO SCH (08:05)
[2020-01-24] MEDS: Furosemide 20 MG TABLET PO SCH (08:05)
[2020-01-24] MEDS: Insulin LISPRO 300 UNITS/3 ML VIAL SQ SCH ×4 (08:36→20:05)
[2020-01-24] MEDS: Tiotropium 18 MCG inhalation IH SCH (11:15)
[2020-01-24] MEDS: Budesonide/Formoterol 160/4.5 1 PUFF INH IH SCH ×2 (11:15→21:06)
[2020-01-24] MEDS: Remdesivir 100 MG in 0.9 % Sodium Chloride 230 ML IVPB SCH (17:07)
[2020-01-24] MEDS: *HR* HYDROcodone/Acet 10/325 mg TABLET PO PRN (19:49)
[2020-01-24] MEDS: Melatonin 3 MG TABLET PO PRN (19:50)
[2020-01-25] MEDS: *HR* Enoxaparin 40 MG/0.4 ML SYRINGE SQ SCH (05:27)
[2020-01-25] MEDS: Benzonatate 100 MG CAPSULE PO PRN ×2 (05:27→17:14)
[2020-01-25 06:57] LABS: Hematocrit 36.4 % (35.3-44.9); Hemoglobin 11.7 g/dL (11.5-15.4); Mean Corpuscular HGB Conc 32.1 g/dL (31.6-35.5); Mean Corpuscular Hemoglobin 30.8 pg (28.0-33.3); Mean Corpuscular Volume 95.8 fL (83.0-100.0); Mean Platelet Volume 11.4 fL (9.4-12.4); Platelet Count 244 K/mcL (140-400); Red Cell Distribution Width 13.2 % (11.5-14.5); White Blood Count 16.9 K/mcL (4.3-11.1)
[2020-01-25 07:00] LABS: INR 1.1
[2020-01-25 07:21] LABS: Alanine Aminotransferase 21 Units/L (7-52); Albumin 3.2 g/dL (3.5-5.7); Albumin/Globulin Ratio 1.2 (1.1-2.2); Alkaline Phosphatase 77 Units/L (34-104); Aspartate Amino Transferase 13 Units/L (13-39); BUN/Creatinine Ratio 36 (6-26); Bilirubin,Total 0.3 mg/dL (0.3-1.0); Blood Urea Nitrogen 31 mg/dL (8-23); Calcium 8.6 mg/dL (8.6-10.3); Carbon Dioxide 21 mEq/L (23-29); Chloride 105 mEq/L (98-107); Globulin 2.6 g/dL (2.4-3.5); Glucose 240 mg/dL (70-105); Osmolality,Calculated 290 (280-300); Potassium 4.1 mEq/L (3.5-5.1); Sodium 133 mEq/L (136-145); Total Protein 5.8 g/dL (6.4-8.9); eGFR For African Americans > 60 (> 60); eGFR For Non-African Americans > 60 (> 60)
[2020-01-25] MEDS: BuPROPion XL (24 HR) 150 MG TABLET PO SCH (08:06)
[2020-01-25] MEDS: Aspirin 81 MG TAB.CHEW PO SCH (08:06)
[2020-01-25] MEDS: Famotidine 20 MG TABLET PO SCH (08:06)
[2020-01-25] MEDS: Isosorbide MONOnitrate (24 HR) 30 MG TAB.ER.24H PO SCH (08:06)
[2020-01-25] MEDS: Furosemide 20 MG TABLET PO SCH (08:06)
[2020-01-25] MEDS: amLODIPine 5 MG TABLET PO SCH (08:06)
[2020-01-25] MEDS: Gabapentin 300 MG CAPSULE PO SCH ×3 (08:06→20:03)
[2020-01-25] MEDS: carvediloL 6.25 MG TABLET PO SCH ×2 (08:06→17:13)
[2020-01-25] MEDS: Dexamethasone 4 MG/ML VIAL IVP SCH (08:06)
[2020-01-25] MEDS: Insulin LISPRO 300 UNITS/3 ML VIAL SQ SCH ×4 (08:08→20:26)
[2020-01-25] MEDS: Budesonide/Formoterol 160/4.5 1 PUFF INH IH SCH ×2 (10:23→21:13)
[2020-01-25] MEDS: Tiotropium 18 MCG inhalation IH SCH (10:24)
[2020-01-26] MEDS: Benzonatate 100 MG CAPSULE PO PRN ×2 (01:47→20:52)
[2020-01-26 04:50] LABS: Hematocrit 37.8 % (35.3-44.9); Hemoglobin 12.6 g/dL (11.5-15.4); Mean Corpuscular HGB Conc 33.3 g/dL (31.6-35.5); Mean Corpuscular Hemoglobin 31.3 pg (28.0-33.3); Mean Corpuscular Volume 93.8 fL (83.0-100.0); Mean Platelet Volume 11.3 fL (9.4-12.4); Platelet Count 306 K/mcL (140-400); Red Blood Count 4.03 M/mcL (3.82-4.97); Red Cell Distribution Width 13.1 % (11.5-14.5); White Blood Count 21.1 K/mcL (4.3-11.1)
[2020-01-26 04:51] LABS: INR 1.1; Prothrombin Time 12.4 Seconds (9.4-12.1)
[2020-01-26 05:08] LABS: Alanine Aminotransferase 22 Units/L (7-52); Albumin 3.5 g/dL (3.5-5.7); Albumin/Globulin Ratio 1.3 (1.1-2.2); Alkaline Phosphatase 80 Units/L (34-104); Aspartate Amino Transferase 13 Units/L (13-39); BUN/Creatinine Ratio 32 (6-26); Bilirubin,Total 0.4 mg/dL (0.3-1.0); Blood Urea Nitrogen 31 mg/dL (8-23); Calcium 9.1 mg/dL (8.6-10.3); Carbon Dioxide 21 mEq/L (23-29); Chloride 106 mEq/L (98-107); Globulin 2.8 g/dL (2.4-3.5); Glucose 165 mg/dL (70-105); Osmolality,Calculated 290 (280-300); Potassium 4.2 mEq/L (3.5-5.1); Sodium 135 mEq/L (136-145); Total Protein 6.3 g/dL (6.4-8.9); eGFR For African Americans > 60 (> 60); eGFR For Non-African Americans 57 (> 60)
[2020-01-26] MEDS: *HR* Enoxaparin 40 MG/0.4 ML SYRINGE SQ SCH (05:27)
[2020-01-26 05:44] LABS: Estimated Average Glucose 148 mg/dl
[2020-01-26] MEDS: amLODIPine 5 MG TABLET PO SCH (07:42)
[2020-01-26] MEDS: Gabapentin 300 MG CAPSULE PO SCH ×3 (07:42→20:33)
[2020-01-26] MEDS: Aspirin 81 MG TAB.CHEW PO SCH (07:42)
[2020-01-26] MEDS: Isosorbide MONOnitrate (24 HR) 30 MG TAB.ER.24H PO SCH (07:42)
[2020-01-26] MEDS: Insulin LISPRO 300 UNITS/3 ML VIAL SQ SCH ×4 (07:42→20:36)
[2020-01-26] MEDS: Furosemide 20 MG TABLET PO SCH (07:42)
[2020-01-26] MEDS: BuPROPion XL (24 HR) 150 MG TABLET PO SCH (07:47)
[2020-01-26] MEDS: carvediloL 6.25 MG TABLET PO SCH ×2 (07:47→16:14)
[2020-01-26] MEDS: Primidone 50 MG TABLET PO SCH (07:47)
[2020-01-26] MEDS: Dexamethasone 4 MG/ML VIAL IVP SCH (07:48)
[2020-01-26] MEDS ORDERED: Famotidine 20 MG TABLET PO SCH (09:00)
[2020-01-26] MEDS: Tiotropium 18 MCG inhalation IH SCH (09:45)
[2020-01-26] MEDS: Budesonide/Formoterol 160/4.5 1 PUFF INH IH SCH ×2 (09:46→21:52)
[2020-01-26] MEDS: Furosemide 40 MG/4 ML VIAL IVP SCH (16:13)
[2020-01-26] MEDS ORDERED: Simethicone 80 MG TAB.CHEW PO PRN (16:26)
[2020-01-27 02:38] LABS: Hematocrit 37.8 % (35.3-44.9); Hemoglobin 12.2 g/dL (11.5-15.4); Mean Corpuscular HGB Conc 32.3 g/dL (31.6-35.5); Mean Corpuscular Hemoglobin 30.2 pg (28.0-33.3); Mean Corpuscular Volume 93.6 fL (83.0-100.0); Mean Platelet Volume 11.1 fL (9.4-12.4); Platelet Count 239 K/mcL (140-400); Red Blood Count 4.04 M/mcL (3.82-4.97); Red Cell Distribution Width 13.1 % (11.5-14.5); White Blood Count 17.3 K/mcL (4.3-11.1)
[2020-01-27 02:44] LABS: Prothrombin Time 12.1 Seconds (9.4-12.1)
[2020-01-27 03:12] LABS: Alanine Aminotransferase 19 Units/L (7-52); Albumin 3.4 g/dL (3.5-5.7); Albumin/Globulin Ratio 1.2 (1.1-2.2); Alkaline Phosphatase 77 Units/L (34-104); Aspartate Amino Transferase 15 Units/L (13-39); BUN/Creatinine Ratio 35 (6-26); Bilirubin,Total 0.4 mg/dL (0.3-1.0); Blood Urea Nitrogen 33 mg/dL (8-23); Calcium 8.9 mg/dL (8.6-10.3); Carbon Dioxide 25 mEq/L (23-29); Chloride 103 mEq/L (98-107); Globulin 2.8 g/dL (2.4-3.5); Glucose 244 mg/dL (70-105); Osmolality,Calculated 293 (280-300); Potassium 4.1 mEq/L (3.5-5.1); Sodium 134 mEq/L (136-145); Total Protein 6.2 g/dL (6.4-8.9); eGFR For African Americans > 60 (> 60); eGFR For Non-African Americans 59 (> 60)
[2020-01-27] MEDS: *HR* Enoxaparin 40 MG/0.4 ML SYRINGE SQ SCH (07:44)
[2020-01-27] MEDS: Famotidine 20 MG TABLET PO SCH (07:45)
[2020-01-27] MEDS: Dexamethasone 4 MG/ML VIAL IVP SCH (07:45)
[2020-01-27] MEDS: carvediloL 6.25 MG TABLET PO SCH ×2 (07:46→16:06)
[2020-01-27] MEDS: Furosemide 40 MG/4 ML VIAL IVP SCH ×2 (07:46→16:06)
[2020-01-27] MEDS: amLODIPine 5 MG TABLET PO SCH (07:46)
[2020-01-27] MEDS: BuPROPion XL (24 HR) 150 MG TABLET PO SCH (07:47)
[2020-01-27] MEDS: Isosorbide MONOnitrate (24 HR) 30 MG TAB.ER.24H PO SCH (07:47)
[2020-01-27] MEDS: Aspirin 81 MG TAB.CHEW PO SCH (07:47)
[2020-01-27] MEDS: Gabapentin 300 MG CAPSULE PO SCH ×3 (07:47→20:47)
[2020-01-27] MEDS: Insulin LISPRO 300 UNITS/3 ML VIAL SQ SCH ×4 (07:48→20:47)
[2020-01-27] MEDS: Budesonide/Formoterol 160/4.5 1 PUFF INH IH SCH ×3 (07:51→22:13)
[2020-01-27] MEDS: Tiotropium 18 MCG inhalation IH SCH ×2 (07:51→09:29)
[2020-01-28] MEDS: *HR* Enoxaparin 40 MG/0.4 ML SYRINGE SQ SCH (05:13)
[2020-01-28 06:07] LABS: Hematocrit 38.5 % (35.3-44.9); Hemoglobin 12.6 g/dL (11.5-15.4); Mean Corpuscular HGB Conc 32.7 g/dL (31.6-35.5); Mean Corpuscular Volume 91.7 fL (83.0-100.0); Mean Platelet Volume 11.1 fL (9.4-12.4); Platelet Count 281 K/mcL (140-400); Red Cell Distribution Width 13.1 % (11.5-14.5)
[2020-01-28 06:27] LABS: Calcium 8.8 mg/dL (8.6-10.3); Potassium 3.8 mEq/L (3.5-5.1)
[2020-01-28] MEDS: carvediloL 6.25 MG TABLET PO SCH ×2 (08:49→16:04)
[2020-01-28] MEDS: Isosorbide MONOnitrate (24 HR) 30 MG TAB.ER.24H PO SCH (08:49)
[2020-01-28] MEDS: BuPROPion XL (24 HR) 150 MG TABLET PO SCH (08:49)
[2020-01-28] MEDS: Gabapentin 300 MG CAPSULE PO SCH ×3 (08:49→19:35)
[2020-01-28] MEDS: Famotidine 20 MG TABLET PO SCH (08:50)
[2020-01-28] MEDS: amLODIPine 5 MG TABLET PO SCH (08:50)
[2020-01-28] MEDS: Aspirin 81 MG TAB.CHEW PO SCH (08:50)
[2020-01-28] MEDS: Furosemide 40 MG/4 ML VIAL IVP SCH (08:50)
[2020-01-28] MEDS: Insulin LISPRO 300 UNITS/3 ML VIAL SQ SCH ×4 (08:50→20:07)
[2020-01-28] MEDS: Benzonatate 100 MG CAPSULE PO PRN (09:03)
[2020-01-28] MEDS: Tiotropium 18 MCG inhalation IH SCH (10:02)
[2020-01-28] MEDS: Budesonide/Formoterol 160/4.5 1 PUFF INH IH SCH ×2 (10:02→20:06)
[2020-01-28] MEDS: Primidone 50 MG TABLET PO SCH (12:00)
[2020-01-28] MEDS: *HR* HYDROcodone/Acet 10/325 mg TABLET PO PRN (16:22)
[2020-01-29] MEDS: *HR* Enoxaparin 40 MG/0.4 ML SYRINGE SQ SCH (05:47)
[2020-01-29 06:36] LABS: Hematocrit 36.2 % (35.3-44.9); Hemoglobin 11.5 g/dL (11.5-15.4); Mean Corpuscular HGB Conc 31.8 g/dL (31.6-35.5); Mean Corpuscular Hemoglobin 29.8 pg (28.0-33.3); Mean Corpuscular Volume 93.8 fL (83.0-100.0); Platelet Count 225 K/mcL (140-400); Red Blood Count 3.86 M/mcL (3.82-4.97); Red Cell Distribution Width 13.2 % (11.5-14.5); White Blood Count 18.5 K/mcL (4.3-11.1)
[2020-01-29 06:56] LABS: BUN/Creatinine Ratio 40 (6-26); Blood Urea Nitrogen 38 mg/dL (8-23); Calcium 8.5 mg/dL (8.6-10.3); Carbon Dioxide 28 mEq/L (23-29); Chloride 99 mEq/L (98-107); Glucose 125 mg/dL (70-105); Osmolality,Calculated 289 (280-300); Potassium 3.7 mEq/L (3.5-5.1); Sodium 134 mEq/L (136-145); eGFR For African Americans > 60 (> 60); eGFR For Non-African Americans 59 (> 60)
[2020-01-29] MEDS: Tiotropium 18 MCG inhalation IH SCH (09:21)
[2020-01-29] MEDS: Budesonide/Formoterol 160/4.5 1 PUFF INH IH SCH ×2 (09:21→21:41)
[2020-01-29] MEDS: Gabapentin 300 MG CAPSULE PO SCH ×3 (09:22→19:50)
[2020-01-29] MEDS: Famotidine 20 MG TABLET PO SCH (09:22)
[2020-01-29] MEDS: Insulin LISPRO 300 UNITS/3 ML VIAL SQ SCH ×4 (09:22→19:54)
[2020-01-29] MEDS: Aspirin 81 MG TAB.CHEW PO SCH (09:23)
[2020-01-29] MEDS: carvediloL 6.25 MG TABLET PO SCH ×2 (09:23→17:59)
[2020-01-29] MEDS: Isosorbide MONOnitrate (24 HR) 30 MG TAB.ER.24H PO SCH (09:23)
[2020-01-29] MEDS: amLODIPine 5 MG TABLET PO SCH (09:23)
[2020-01-29] MEDS: BuPROPion XL (24 HR) 150 MG TABLET PO SCH (09:23)
[2020-01-29] MEDS: Furosemide 40 MG/4 ML VIAL IVP SCH (09:24)
[2020-01-29] MEDS: Benzonatate 100 MG CAPSULE PO PRN ×2 (11:28→22:03)
[2020-01-30] MEDS: *HR* Enoxaparin 40 MG/0.4 ML SYRINGE SQ SCH (06:33)
[2020-01-30] MEDS: Benzonatate 100 MG CAPSULE PO PRN ×2 (06:59→19:27)
[2020-01-30 07:38] LABS: Hematocrit 35.5 % (35.3-44.9); Hemoglobin 11.4 g/dL (11.5-15.4); Mean Corpuscular HGB Conc 32.1 g/dL (31.6-35.5); Mean Corpuscular Hemoglobin 30.6 pg (28.0-33.3); Mean Corpuscular Volume 95.4 fL (83.0-100.0); Mean Platelet Volume 11.3 fL (9.4-12.4); Platelet Count 211 K/mcL (140-400); Red Blood Count 3.72 M/mcL (3.82-4.97); Red Cell Distribution Width 13.1 % (11.5-14.5); White Blood Count 18.5 K/mcL (4.3-11.1)
[2020-01-30] MEDS: carvediloL 6.25 MG TABLET PO SCH ×2 (07:48→16:31)
[2020-01-30] MEDS: BuPROPion XL (24 HR) 150 MG TABLET PO SCH (07:49)
[2020-01-30] MEDS: Isosorbide MONOnitrate (24 HR) 30 MG TAB.ER.24H PO SCH (07:49)
[2020-01-30] MEDS: Aspirin 81 MG TAB.CHEW PO SCH (07:49)
[2020-01-30] MEDS: Famotidine 20 MG TABLET PO SCH (07:49)
[2020-01-30] MEDS: amLODIPine 5 MG TABLET PO SCH (07:50)
[2020-01-30] MEDS: Gabapentin 300 MG CAPSULE PO SCH ×3 (07:50→19:27)
[2020-01-30 07:55] LABS: BUN/Creatinine Ratio 30 (6-26); Blood Urea Nitrogen 27 mg/dL (8-23); Calcium 8.5 mg/dL (8.6-10.3); Carbon Dioxide 25 mEq/L (23-29); Chloride 99 mEq/L (98-107); Glucose 372 mg/dL (70-105); Osmolality,Calculated 294 (280-300); Sodium 132 mEq/L (136-145); eGFR For African Americans > 60 (> 60); eGFR For Non-African Americans > 60 (> 60)
[2020-01-30] MEDS: Insulin LISPRO 300 UNITS/3 ML VIAL SQ SCH ×4 (08:23→19:39)
[2020-01-30] MEDS: Tiotropium 18 MCG inhalation IH SCH (09:51)
[2020-01-30] MEDS: Budesonide/Formoterol 160/4.5 1 PUFF INH IH SCH ×2 (09:51→21:20)
[2020-01-30] MEDS: Furosemide 40 MG/4 ML VIAL IVP SCH (11:41)
[2020-01-30] MEDS: dexAMETHasone 4 MG TABLET PO SCH (12:18)
[2020-01-30 14:09] LABS: Magnesium 1.9 mg/dL (1.6-2.6)
[2020-01-30] MEDS: Ipratropium 1 PUFF INHALER IH SCH ×2 (15:20→21:20)
[2020-01-31] MEDS: Ipratropium 1 PUFF INHALER IH SCH ×4 (03:24→19:54)
[2020-01-31] MEDS: *HR* Enoxaparin 40 MG/0.4 ML SYRINGE SQ SCH (05:24)
[2020-01-31 07:19] LABS: Hematocrit 35.9 % (35.3-44.9); Hemoglobin 11.6 g/dL (11.5-15.4); Mean Corpuscular HGB Conc 32.3 g/dL (31.6-35.5); Mean Corpuscular Hemoglobin 30.4 pg (28.0-33.3); Mean Corpuscular Volume 94.2 fL (83.0-100.0); Platelet Count 229 K/mcL (140-400); Red Blood Count 3.81 M/mcL (3.82-4.97); Red Cell Distribution Width 13.1 % (11.5-14.5); White Blood Count 17.9 K/mcL (4.3-11.1)
[2020-01-31 08:28] LABS: BUN/Creatinine Ratio 44 (6-26); Blood Urea Nitrogen 34 mg/dL (8-23); Calcium 9.3 mg/dL (8.6-10.3); Carbon Dioxide 25 mEq/L (23-29); Chloride 101 mEq/L (98-107); Glucose 263 mg/dL (70-105); Magnesium 2.3 mg/dL (1.6-2.6); Osmolality,Calculated 295 (280-300); Potassium 4.2 mEq/L (3.5-5.1); Sodium 134 mEq/L (136-145); eGFR For African Americans > 60 (> 60); eGFR For Non-African Americans > 60 (> 60)
[2020-01-31] MEDS: Gabapentin 300 MG CAPSULE PO SCH ×3 (08:41→20:32)
[2020-01-31] MEDS: BuPROPion XL (24 HR) 150 MG TABLET PO SCH (08:42)
[2020-01-31] MEDS: Aspirin 81 MG TAB.CHEW PO SCH (08:42)
[2020-01-31] MEDS: Isosorbide MONOnitrate (24 HR) 30 MG TAB.ER.24H PO SCH (08:42)
[2020-01-31] MEDS: dexAMETHasone 4 MG TABLET PO SCH (08:42)
[2020-01-31] MEDS: Famotidine 20 MG TABLET PO SCH (08:42)
[2020-01-31] MEDS: Vancomycin 1,500 MG/265 ML IV.SOLN IVPB SCH (08:42)
[2020-01-31] MEDS: carvediloL 6.25 MG TABLET PO SCH ×2 (08:42→16:55)
[2020-01-31] MEDS: amLODIPine 5 MG TABLET PO SCH (08:42)
[2020-01-31] MEDS: Benzonatate 100 MG CAPSULE PO PRN (08:42)
[2020-01-31] MEDS: Cefepime HCl 2,000 MG in Water for inj. (sterile) 20 ML IVP SCH ×2 (08:43→20:31)
[2020-01-31] MEDS: Insulin LISPRO 300 UNITS/3 ML VIAL SQ SCH ×4 (08:43→20:33)
[2020-01-31] MEDS: Primidone 50 MG TABLET PO SCH (08:45)
[2020-01-31] MEDS ORDERED: Furosemide 40 MG/4 ML VIAL IVP SCH ×2 (09:00→10:00)
[2020-01-31] MEDS ORDERED: Furosemide 60 MG in 0.9 % Sodium Chloride 50 ML IV SCH (09:00)
[2020-01-31] MEDS: Budesonide/Formoterol 160/4.5 1 PUFF INH IH SCH ×2 (10:26→19:54)
[2020-01-31] MEDS: Furosemide 60 MG in 0.9 % Sodium Chloride 50 ML IV SCH ×2 (11:47→20:32)
[2020-01-31] MEDS ORDERED: Insulin LISPRO 300 UNITS/3 ML VIAL SQ ONE (18:51)
[2020-01-31] MEDS: Furosemide 40 MG/4 ML VIAL IVP SCH (19:19)
[2020-01-31] MEDS ORDERED: Insulin DETEMIR 100 UNIT/ML X5UNITS SQ SCH (21:00)
[2020-02-01] MEDS: Ipratropium 1 PUFF INHALER IH SCH ×4 (03:14→21:59)
[2020-02-01] MEDS: *HR* Enoxaparin 40 MG/0.4 ML SYRINGE SQ SCH (06:16)
[2020-02-01 06:56] LABS: Basophils % 0.1 %; Eosinophils % 0.1 %; Hematocrit 36.8 % (35.3-44.9); Hemoglobin 11.9 g/dL (11.5-15.4); Immature Granulocytes % 1.3 % (0-4); Lymphocytes # 2.3 K/mcL (0.6-4.6); Lymphocytes % 10.4 %; Mean Corpuscular HGB Conc 32.3 g/dL (31.6-35.5); Mean Corpuscular Hemoglobin 30.4 pg (28.0-33.3); Mean Corpuscular Volume 93.9 fL (83.0-100.0); Mean Platelet Volume 11.3 fL (9.4-12.4); Monocytes # 1.4 K/mcL (0.0-1.3); Monocytes % 6.3 %; Neutrophils # 17.9 K/mcL (1.6-8.9); Platelet Count 261 K/mcL (140-400); Red Blood Count 3.92 M/mcL (3.82-4.97); Segmented Neutrophils % 81.8 %; White Blood Count 21.9 K/mcL (4.3-11.1)
[2020-02-01 07:15] LABS: BUN/Creatinine Ratio 48 (6-26); Blood Urea Nitrogen 44 mg/dL (8-23); Calcium 9.4 mg/dL (8.6-10.3); Carbon Dioxide 27 mEq/L (23-29); Chloride 98 mEq/L (98-107); Glucose 177 mg/dL (70-105); Osmolality,Calculated 292 (280-300); Phosphorous 3.6 mg/dL (2.7-4.5); Potassium 4.1 mEq/L (3.5-5.1); Sodium 133 mEq/L (136-145); eGFR For African Americans > 60 (> 60); eGFR For Non-African Americans > 60 (> 60)
[2020-02-01] MEDS: Vancomycin 1,500 MG/265 ML IV.SOLN IVPB SCH (08:08)
[2020-02-01] MEDS: Isosorbide MONOnitrate (24 HR) 30 MG TAB.ER.24H PO SCH (08:08)
[2020-02-01] MEDS: BuPROPion XL (24 HR) 150 MG TABLET PO SCH (08:08)
[2020-02-01] MEDS: Aspirin 81 MG TAB.CHEW PO SCH (08:08)
[2020-02-01] MEDS: carvediloL 6.25 MG TABLET PO SCH ×2 (08:09→16:18)
[2020-02-01] MEDS: amLODIPine 5 MG TABLET PO SCH (08:09)
[2020-02-01] MEDS: Gabapentin 300 MG CAPSULE PO SCH ×3 (08:09→20:28)
[2020-02-01] MEDS: Famotidine 20 MG TABLET PO SCH (08:09)
[2020-02-01] MEDS: Cefepime HCl 2,000 MG in Water for inj. (sterile) 20 ML IVP SCH ×3 (08:09→23:44)
[2020-02-01] MEDS: Insulin LISPRO 300 UNITS/3 ML VIAL SQ SCH ×4 (08:10→20:30)
[2020-02-01] MEDS: Furosemide 60 MG in 0.9 % Sodium Chloride 50 ML IV SCH ×2 (08:14→20:30)
[2020-02-01] MEDS ORDERED: dexAMETHasone 4 MG TABLET PO SCH (09:00)
[2020-02-01] MEDS: Insulin DETEMIR 100 UNIT/ML X5UNITS SQ SCH ×2 (10:06→20:28)
[2020-02-01] MEDS: Budesonide/Formoterol 160/4.5 1 PUFF INH IH SCH ×2 (10:07→22:04)
[2020-02-02 02:21] LABS: Hematocrit 35.4 % (35.3-44.9); Hemoglobin 11.6 g/dL (11.5-15.4); Mean Corpuscular HGB Conc 32.8 g/dL (31.6-35.5); Mean Corpuscular Volume 91.5 fL (83.0-100.0); Mean Platelet Volume 11.1 fL (9.4-12.4); Platelet Count 251 K/mcL (140-400); Red Blood Count 3.87 M/mcL (3.82-4.97); White Blood Count 17.3 K/mcL (4.3-11.1)
[2020-02-02 02:39] LABS: Potassium 3.6 mEq/L (3.5-5.1)
[2020-02-02] MEDS: Ipratropium 1 PUFF INHALER IH SCH ×4 (03:42→21:40)
[2020-02-02] MEDS: *HR* Enoxaparin 40 MG/0.4 ML SYRINGE SQ SCH (05:37)
[2020-02-02] MEDS: Cefepime HCl 2,000 MG in Water for inj. (sterile) 20 ML IVP SCH ×2 (08:49→17:07)
[2020-02-02] MEDS: Aspirin 81 MG TAB.CHEW PO SCH (08:50)
[2020-02-02] MEDS: carvediloL 6.25 MG TABLET PO SCH ×2 (08:50→16:16)
[2020-02-02] MEDS: amLODIPine 5 MG TABLET PO SCH (08:50)
[2020-02-02] MEDS: Dexamethasone 4 MG/ML VIAL IVP SCH (08:50)
[2020-02-02] MEDS: Gabapentin 300 MG CAPSULE PO SCH ×3 (08:51→20:24)
[2020-02-02] MEDS: Isosorbide MONOnitrate (24 HR) 30 MG TAB.ER.24H PO SCH (08:51)
[2020-02-02] MEDS: BuPROPion XL (24 HR) 150 MG TABLET PO SCH (08:51)
[2020-02-02] MEDS: Famotidine 20 MG TABLET PO SCH (08:51)
[2020-02-02] MEDS: Insulin LISPRO 300 UNITS/3 ML VIAL SQ SCH ×5 (08:52→20:28)
[2020-02-02] MEDS: Insulin DETEMIR 100 UNIT/ML X5UNITS SQ SCH ×2 (08:52→20:29)
[2020-02-02] MEDS: Furosemide 60 MG in 0.9 % Sodium Chloride 50 ML IV SCH (08:56)
[2020-02-02] MEDS: Primidone 50 MG TABLET PO SCH (09:00)
[2020-02-02] MEDS ORDERED: Dexamethasone 4 MG/ML VIAL IVP SCH (09:00)
[2020-02-02] MEDS: Budesonide/Formoterol 160/4.5 1 PUFF INH IH SCH ×2 (10:53→21:40)
[2020-02-02] MEDS: Nystatin SUSP 5 ML UD.LIQ PO SCH ×3 (11:39→20:24)
[2020-02-02] MEDS ORDERED: Furosemide 20 MG TABLET PO SCH (17:00)
[2020-02-02] MEDS: Furosemide 20 MG TABLET PO SCH (17:07)
[2020-02-03] MEDS: Ipratropium 1 PUFF INHALER IH SCH ×4 (03:12→21:51)
[2020-02-03 04:02] LABS: Basophils % 0.2 %; Eosinophils % 0.2 %; Hematocrit 39.2 % (35.3-44.9); Hemoglobin 12.8 g/dL (11.5-15.4); Immature Granulocytes % 2.6 % (0-4); Lymphocytes # 3.2 K/mcL (0.6-4.6); Lymphocytes % 16.6 %; Mean Corpuscular HGB Conc 32.7 g/dL (31.6-35.5); Monocytes # 1.8 K/mcL (0.0-1.3); Monocytes % 9.3 %; Neutrophils # 13.5 K/mcL (1.6-8.9); Platelet Count 259 K/mcL (140-400); Red Blood Count 4.26 M/mcL (3.82-4.97); Red Cell Distribution Width 12.8 % (11.5-14.5); Segmented Neutrophils % 71.1 %
[2020-02-03 04:20] LABS: Calcium 9.3 mg/dL (8.6-10.3); Potassium 4.1 mEq/L (3.5-5.1)
[2020-02-03] MEDS: *HR* Enoxaparin 40 MG/0.4 ML SYRINGE SQ SCH (05:20)
[2020-02-03] MEDS: Cefepime HCl 2,000 MG in Water for inj. (sterile) 20 ML IVP SCH ×2 (05:20→17:33)
[2020-02-03] MEDS: Nystatin SUSP 5 ML UD.LIQ PO SCH ×4 (08:13→19:51)
[2020-02-03] MEDS: Dexamethasone 4 MG/ML VIAL IVP SCH (08:14)
[2020-02-03] MEDS: amLODIPine 5 MG TABLET PO SCH (08:14)
[2020-02-03] MEDS: Isosorbide MONOnitrate (24 HR) 30 MG TAB.ER.24H PO SCH (08:14)
[2020-02-03] MEDS: carvediloL 6.25 MG TABLET PO SCH ×2 (08:14→17:35)
[2020-02-03] MEDS: BuPROPion XL (24 HR) 150 MG TABLET PO SCH (08:14)
[2020-02-03] MEDS: Furosemide 20 MG TABLET PO SCH ×2 (08:14→17:35)
[2020-02-03] MEDS: Gabapentin 300 MG CAPSULE PO SCH ×3 (08:14→19:49)
[2020-02-03] MEDS: Famotidine 20 MG TABLET PO SCH (08:14)
[2020-02-03] MEDS: Aspirin 81 MG TAB.CHEW PO SCH (08:14)
[2020-02-03] MEDS: Insulin LISPRO 300 UNITS/3 ML VIAL SQ SCH ×7 (08:40→19:51)
[2020-02-03] MEDS: Insulin DETEMIR 100 UNIT/ML X5UNITS SQ SCH ×2 (10:13→19:50)
[2020-02-03] MEDS: Budesonide/Formoterol 160/4.5 1 PUFF INH IH SCH ×2 (10:50→21:51)
[2020-02-04] MEDS: Ipratropium 1 PUFF INHALER IH SCH ×4 (03:43→21:35)
[2020-02-04] MEDS: Cefepime HCl 2,000 MG in Water for inj. (sterile) 20 ML IVP SCH ×2 (06:01→17:17)
[2020-02-04] MEDS: *HR* Enoxaparin 40 MG/0.4 ML SYRINGE SQ SCH (06:01)
[2020-02-04 06:43] LABS: Basophils % 0.2 %; Eosinophils # 0.2 K/mcL (0.0-0.6); Eosinophils % 0.7 %; Hematocrit 38.2 % (35.3-44.9); Immature Granulocytes % 2.1 % (0-4); Lymphocytes # 3.9 K/mcL (0.6-4.6); Lymphocytes % 19.1 %; Mean Corpuscular HGB Conc 31.4 g/dL (31.6-35.5); Mean Corpuscular Hemoglobin 29.7 pg (28.0-33.3); Mean Corpuscular Volume 94.6 fL (83.0-100.0); Mean Platelet Volume 10.9 fL (9.4-12.4); Monocytes # 1.4 K/mcL (0.0-1.3); Neutrophils # 14.4 K/mcL (1.6-8.9); Platelet Count 271 K/mcL (140-400); Red Blood Count 4.04 M/mcL (3.82-4.97); Red Cell Distribution Width 13.1 % (11.5-14.5); Segmented Neutrophils % 70.9 %; White Blood Count 20.4 K/mcL (4.3-11.1)
[2020-02-04 06:55] LABS: BUN/Creatinine Ratio 44 (6-26); Blood Urea Nitrogen 45 mg/dL (8-23); Carbon Dioxide 29 mEq/L (23-29); Chloride 99 mEq/L (98-107); Glucose 118 mg/dL (70-105); Osmolality,Calculated 289 (280-300); Potassium 3.8 mEq/L (3.5-5.1); Sodium 133 mEq/L (136-145); eGFR For African Americans > 60 (> 60); eGFR For Non-African Americans 53 (> 60)
[2020-02-04] MEDS: Dexamethasone 4 MG/ML VIAL IVP SCH (08:38)
[2020-02-04] MEDS: Insulin DETEMIR 100 UNIT/ML X5UNITS SQ SCH ×2 (08:38→19:58)
[2020-02-04] MEDS: BuPROPion XL (24 HR) 150 MG TABLET PO SCH (08:39)
[2020-02-04] MEDS: Famotidine 20 MG TABLET PO SCH (08:39)
[2020-02-04] MEDS: carvediloL 6.25 MG TABLET PO SCH ×2 (08:39→17:15)
[2020-02-04] MEDS: Nystatin SUSP 5 ML UD.LIQ PO SCH ×4 (08:39→19:58)
[2020-02-04] MEDS: amLODIPine 5 MG TABLET PO SCH (08:39)
[2020-02-04] MEDS: Aspirin 81 MG TAB.CHEW PO SCH (08:39)
[2020-02-04] MEDS: Gabapentin 300 MG CAPSULE PO SCH ×3 (08:39→19:58)
[2020-02-04] MEDS: Furosemide 20 MG TABLET PO SCH ×2 (08:39→17:16)
[2020-02-04] MEDS: Isosorbide MONOnitrate (24 HR) 30 MG TAB.ER.24H PO SCH (08:39)
[2020-02-04] MEDS: Insulin LISPRO 300 UNITS/3 ML VIAL SQ SCH ×7 (08:40→20:11)
[2020-02-04] MEDS: Primidone 50 MG TABLET PO SCH (08:42)
[2020-02-04] MEDS: Budesonide/Formoterol 160/4.5 1 PUFF INH IH SCH ×2 (09:47→21:35)
[2020-02-04] MEDS ORDERED: Insulin Human Regular 10 UNIT in 0.9 % Sodium Chloride 10 ML IV ONE (17:15)
[2020-02-05] MEDS: Ipratropium 1 PUFF INHALER IH SCH ×4 (04:11→21:46)
[2020-02-05] MEDS: *HR* Enoxaparin 40 MG/0.4 ML SYRINGE SQ SCH (05:34)
[2020-02-05] MEDS: Cefepime HCl 2,000 MG in Water for inj. (sterile) 20 ML IVP SCH ×2 (05:34→18:01)
[2020-02-05] MEDS: Aspirin 81 MG TAB.CHEW PO SCH (08:43)
[2020-02-05] MEDS: Famotidine 20 MG TABLET PO SCH (08:43)
[2020-02-05] MEDS: BuPROPion XL (24 HR) 150 MG TABLET PO SCH (08:44)
[2020-02-05] MEDS: carvediloL 6.25 MG TABLET PO SCH ×2 (08:44→18:01)
[2020-02-05] MEDS: Gabapentin 300 MG CAPSULE PO SCH ×3 (08:44→20:09)
[2020-02-05] MEDS: amLODIPine 5 MG TABLET PO SCH (08:44)
[2020-02-05] MEDS: Furosemide 20 MG TABLET PO SCH ×2 (08:44→18:00)
[2020-02-05] MEDS: Dexamethasone 4 MG/ML VIAL IVP SCH (08:45)
[2020-02-05] MEDS: Insulin DETEMIR 100 UNIT/ML X5UNITS SQ SCH ×2 (08:46→20:09)
[2020-02-05] MEDS: Isosorbide MONOnitrate (24 HR) 30 MG TAB.ER.24H PO SCH (08:46)
[2020-02-05] MEDS: Nystatin SUSP 5 ML UD.LIQ PO SCH ×4 (08:47→20:10)
[2020-02-05] MEDS: Insulin LISPRO 300 UNITS/3 ML VIAL SQ SCH ×7 (09:29→20:09)
[2020-02-05 10:10] LABS: Basophils % 0.2 %; Eosinophils # 0.2 K/mcL (0.0-0.6); Hematocrit 36.6 % (35.3-44.9); Hemoglobin 11.6 g/dL (11.5-15.4); Immature Granulocytes % 2.4 % (0-4); Lymphocytes # 3.6 K/mcL (0.6-4.6); Mean Corpuscular HGB Conc 31.7 g/dL (31.6-35.5); Mean Corpuscular Hemoglobin 30.5 pg (28.0-33.3); Mean Corpuscular Volume 96.3 fL (83.0-100.0); Mean Platelet Volume 10.9 fL (9.4-12.4); Monocytes # 1.1 K/mcL (0.0-1.3); Monocytes % 5.3 %; Neutrophils # 14.6 K/mcL (1.6-8.9); Platelet Count 233 K/mcL (140-400); Red Cell Distribution Width 13.1 % (11.5-14.5); Segmented Neutrophils % 73.1 %; White Blood Count 19.9 K/mcL (4.3-11.1)
[2020-02-05 10:29] LABS: BUN/Creatinine Ratio 36 (6-26); Blood Urea Nitrogen 38 mg/dL (8-23); Calcium 8.9 mg/dL (8.6-10.3); Carbon Dioxide 29 mEq/L (23-29); Chloride 97 mEq/L (98-107); Glucose 226 mg/dL (70-105); Osmolality,Calculated 290 (280-300); Potassium 3.8 mEq/L (3.5-5.1); Sodium 132 mEq/L (136-145); eGFR For African Americans > 60 (> 60); eGFR For Non-African Americans 52 (> 60)
[2020-02-05] MEDS: Budesonide/Formoterol 160/4.5 1 PUFF INH IH SCH ×2 (10:42→21:48)
[2020-02-06] MEDS: Ipratropium 1 PUFF INHALER IH SCH ×4 (03:38→21:38)
[2020-02-06] MEDS: *HR* Enoxaparin 40 MG/0.4 ML SYRINGE SQ SCH (06:01)
[2020-02-06] MEDS: Cefepime HCl 2,000 MG in Water for inj. (sterile) 20 ML IVP SCH (06:02)
[2020-02-06] MEDS: Nystatin SUSP 5 ML UD.LIQ PO SCH ×4 (08:29→20:17)
[2020-02-06] MEDS: Gabapentin 300 MG CAPSULE PO SCH ×3 (08:30→20:17)
[2020-02-06] MEDS: amLODIPine 5 MG TABLET PO SCH (08:30)
[2020-02-06] MEDS: Aspirin 81 MG TAB.CHEW PO SCH (08:30)
[2020-02-06] MEDS: BuPROPion XL (24 HR) 150 MG TABLET PO SCH (08:30)
[2020-02-06] MEDS: Insulin DETEMIR 100 UNIT/ML X5UNITS SQ SCH ×2 (08:30→20:18)
[2020-02-06] MEDS: Isosorbide MONOnitrate (24 HR) 30 MG TAB.ER.24H PO SCH (08:30)
[2020-02-06] MEDS: Famotidine 20 MG TABLET PO SCH (08:31)
[2020-02-06] MEDS: Furosemide 20 MG TABLET PO SCH ×2 (08:31→16:20)
[2020-02-06] MEDS: carvediloL 6.25 MG TABLET PO SCH ×2 (08:31→16:20)
[2020-02-06] MEDS: Insulin LISPRO 300 UNITS/3 ML VIAL SQ SCH ×7 (08:33→20:18)
[2020-02-06] MEDS: Budesonide/Formoterol 160/4.5 1 PUFF INH IH SCH ×2 (10:07→21:39)
[2020-02-06] MEDS: dexAMETHasone 4 MG TABLET PO SCH (10:21)
[2020-02-06] MEDS: Cefdinir 300 MG CAPSULE PO SCH ×2 (10:21→20:17)
[2020-02-07] MEDS: Ipratropium 1 PUFF INHALER IH SCH ×3 (03:39→15:12)
[2020-02-07] MEDS: *HR* Enoxaparin 40 MG/0.4 ML SYRINGE SQ SCH (05:07)
[2020-02-07 05:20] LABS: BUN/Creatinine Ratio 41 (6-26); Blood Urea Nitrogen 37 mg/dL (8-23); Calcium 8.9 mg/dL (8.6-10.3); Carbon Dioxide 27 mEq/L (23-29); Chloride 101 mEq/L (98-107); Glucose 94 mg/dL (70-105); Osmolality,Calculated 288 (280-300); Potassium 4.1 mEq/L (3.5-5.1); Sodium 135 mEq/L (136-145); eGFR For African Americans > 60 (> 60); eGFR For Non-African Americans > 60 (> 60)
[2020-02-07 07:12] VITALS: BP 107/70
[2020-02-07] MEDS: Insulin LISPRO 300 UNITS/3 ML VIAL SQ SCH ×4 (07:47→12:13)
[2020-02-07] MEDS: Cefdinir 300 MG CAPSULE PO SCH (09:03)
[2020-02-07] MEDS: Famotidine 20 MG TABLET PO SCH (09:03)
[2020-02-07] MEDS: Gabapentin 300 MG CAPSULE PO SCH (09:03)
[2020-02-07] MEDS: Nystatin SUSP 5 ML UD.LIQ PO SCH ×2 (09:04→12:13)
[2020-02-07] MEDS: dexAMETHasone 4 MG TABLET PO SCH (09:04)
[2020-02-07] MEDS: Aspirin 81 MG TAB.CHEW PO SCH (09:04)
[2020-02-07] MEDS: BuPROPion XL (24 HR) 150 MG TABLET PO SCH (09:04)
[2020-02-07] MEDS: Primidone 50 MG TABLET PO SCH (09:06)
[2020-02-07] MEDS: Insulin DETEMIR 100 UNIT/ML X5UNITS SQ SCH (09:06)
[2020-02-07] MEDS: Budesonide/Formoterol 160/4.5 1 PUFF INH IH SCH (09:59)
[2020-02-07] MEDS: carvediloL 6.25 MG TABLET PO SCH (10:34)
[2020-02-07] MEDS: Furosemide 20 MG TABLET PO SCH (10:34)
[2020-02-07] MEDS: amLODIPine 5 MG TABLET PO SCH (10:34)
[2020-02-07] MEDS: Isosorbide MONOnitrate (24 HR) 30 MG TAB.ER.24H PO SCH (10:34)
== END 2020-02-07 16:35 | disposition home or self-care (01) | DRG 177 ==
LOC: 2NENU → SUATTDRO 17:10
PROVIDERS: ADMIT Internal Medicine; ATTEND Internal Medicine

== ENCOUNTER 2020-11-17 13:40 | Inpatient (IN) ==
[2020-11-17] MEDS ORDERED: Ipratropium/Albuterol Neb 3 ML IH ONE (13:49)
[2020-11-17] MEDS ORDERED: Isovue-370 500 ML BOTTLE IVP ONE (13:50)
[2020-11-17 14:24] LABS: Basophils % 0.2 %; Eosinophils % 0.1 %; Hematocrit 25.8 % (35.3-44.9); Immature Granulocytes % 0.8 % (0-4); Lymphocytes # 1.3 K/mcL (0.6-4.6); Lymphocytes % 12.7 %; Mean Corpuscular Hemoglobin 30.5 pg (28.0-33.3); Mean Corpuscular Volume 98.5 fL (83.0-100.0); Mean Platelet Volume 10.6 fL (9.4-12.4); Monocytes # 0.6 K/mcL (0.0-1.3); Monocytes % 6.1 %; Neutrophils # 8.3 K/mcL (1.6-8.9); Nucleated Red Blood Cells 0.2 /100 WBC (0); Platelet Count 268 K/mcL (140-400); Red Blood Count 2.62 M/mcL (3.82-4.97); Red Cell Distribution Width 15.1 % (11.5-14.5); Segmented Neutrophils % 80.1 %; White Blood Count 10.4 K/mcL (4.3-11.1)
[2020-11-17 14:31] LABS: INR 1.3; Prothrombin Time 14.4 Seconds (9.4-12.1)
[2020-11-17 14:33] LABS: Activated Partial Thrombo Time 21.9 Seconds (26.0-36.0)
[2020-11-17 14:47] LABS: Alanine Aminotransferase 11 Units/L (7-52); Albumin 3.7 g/dL (3.5-5.7); Albumin/Globulin Ratio 1.6 (1.1-2.2); Alkaline Phosphatase 82 Units/L (34-104); Aspartate Amino Transferase 17 Units/L (13-39); BUN/Creatinine Ratio 22 (6-26); Bilirubin,Direct 0.1 mg/dL (0.0-0.2); Bilirubin,Indirect 0.4 mg/dL (0.0-1.0); Bilirubin,Total 0.5 mg/dL (0.3-1.0); Blood Urea Nitrogen 18 mg/dL (8-23); Calcium 9.1 mg/dL (8.6-10.3); Carbon Dioxide 26 mEq/L (23-29); Chloride 101 mEq/L (98-107); Globulin 2.3 g/dL (2.4-3.5); Glucose 113 mg/dL (70-105); Osmolality,Calculated 279 (280-300); Potassium 4.1 mEq/L (3.5-5.1); Sodium 133 mEq/L (136-145); Troponin I < 0.03 ng/mL (< 0.04); eGFR For African Americans > 60 (> 60); eGFR For Non-African Americans > 60 (> 60)
[2020-11-17] MEDS ORDERED: Furosemide 40 MG in 0.9 % Sodium Chloride 50 ML IVPB ONE (16:54)
[2020-11-17] MEDS ORDERED: Furosemide 40 MG/4 ML VIAL IVP ONE (17:00)
[2020-11-17] MEDS ORDERED: Ondansetron 4 MG/2 ML VIAL IVP PRN (17:18)
[2020-11-17] MEDS ORDERED: Naloxone 0.4 MG/ML INJ IVP PRN (17:18)
[2020-11-17] MEDS ORDERED: Perflutren Lipid Microsphere 1.3 ML in 0.9 % Sodium Chloride 8.7 ML IVP PRN (17:43)
[2020-11-17 18:00] LABS: Influenza A PCR Negative (Negative); Influenza B PCR Negative (Negative); Resp. Syncytial Virus PCR Negative (Negative)
[2020-11-17] MEDS: *HR* HYDROcodone/Acet 10/325 mg TABLET PO PRN (18:47)
[2020-11-17 18:55] LABS: SARS-CoV-2 by PCR (In House) Negative (Negative)
[2020-11-17] MEDS: Melatonin 3 MG TABLET PO SCH (20:59)
[2020-11-17] MEDS: carvediloL 6.25 MG TABLET PO SCH (21:04)
[2020-11-17] MEDS: Ipratropium/Albuterol Neb 3 ML IH SCH (21:24)
[2020-11-17] MEDS: Budesonide/Formoterol 160/4.5 1 PUFF INH IH SCH (21:24)
[2020-11-18] MEDS: Ipratropium/Albuterol Neb 3 ML IH SCH ×5 (04:39→22:10)
[2020-11-18] MEDS: *HR* HYDROcodone/Acet 10/325 mg TABLET PO PRN (06:31)
[2020-11-18] MEDS: Aspirin 81 MG TAB.CHEW PO SCH (07:52)
[2020-11-18] MEDS: Isosorbide MONOnitrate (24 HR) 30 MG TAB.ER.24H PO SCH (07:52)
[2020-11-18] MEDS: carvediloL 6.25 MG TABLET PO SCH ×2 (07:52→17:58)
[2020-11-18] MEDS: BuPROPion XL (24 HR) 150 MG TABLET PO SCH (07:52)
[2020-11-18] MEDS: Budesonide/Formoterol 160/4.5 1 PUFF INH IH SCH ×2 (10:04→22:10)
[2020-11-18] MEDS: Tiotropium 10 INH DOSE IH SCH ×2 (10:04)
[2020-11-18 10:24] LABS: Basophils % 0.1 %; Eosinophils % 0.1 %; Hematocrit 26.5 % (35.3-44.9); Immature Granulocytes % 0.8 % (0-4); Lymphocytes % 13.1 %; Mean Corpuscular HGB Conc 30.2 g/dL (31.6-35.5); Mean Corpuscular Hemoglobin 30.1 pg (28.0-33.3); Mean Corpuscular Volume 99.6 fL (83.0-100.0); Mean Platelet Volume 10.2 fL (9.4-12.4); Monocytes # 0.6 K/mcL (0.0-1.3); Neutrophils # 6.1 K/mcL (1.6-8.9); Nucleated Red Blood Cells 0.4 /100 WBC (0); Platelet Count 291 K/mcL (140-400); Red Blood Count 2.66 M/mcL (3.82-4.97); Red Cell Distribution Width 15.3 % (11.5-14.5); Segmented Neutrophils % 77.9 %; White Blood Count 7.8 K/mcL (4.3-11.1)
[2020-11-18] MEDS: MethylPREDNISolone 40 MG/ML VIAL IVP SCH ×3 (10:41→23:16)
[2020-11-18] MEDS: Furosemide 40 MG/4 ML VIAL IVP SCH ×2 (10:42→18:20)
[2020-11-18 10:44] LABS: BUN/Creatinine Ratio 23 (6-26); Blood Urea Nitrogen 20 mg/dL (8-23); Calcium 9.4 mg/dL (8.6-10.3); Carbon Dioxide 32 mEq/L (23-29); Chloride 100 mEq/L (98-107); Glucose 148 mg/dL (70-105); Magnesium 1.9 mg/dL (1.6-2.6); Osmolality,Calculated 287 (280-300); Potassium 3.7 mEq/L (3.5-5.1); Sodium 136 mEq/L (136-145); eGFR For African Americans > 60 (> 60); eGFR For Non-African Americans > 60 (> 60)
[2020-11-18] MEDS ORDERED: *HR* LORazepam 2 MG/ML VIAL IVP ONE ×2 (11:39→11:41)
[2020-11-18] MEDS ORDERED: *HR* LORazepam 2 MG/ML VIAL ONE (11:42)
[2020-11-18] MEDS ORDERED: *HR* LORazepam 2 MG/ML VIAL IVP PRN (11:54)
[2020-11-18 12:17] LABS: ABG Base Excess 4 mEq/L (-2 to 3); ABG HCO3 32 mEq/L (21-27); ABG Oxygen Saturation 93 % (95-98); ABG PCO2 69 mmHg (35-45); ABG PH 7.28 pH Units (7.32-7.45); ABG PO2 78 mmHg (85-104); ABG TCO2 35 mEq/L (20-26)
[2020-11-18] MEDS: levoFLOXacin 750 MG/150 ML 750 MG/150 ML BAG IVPB SCH (12:18)
[2020-11-18] MEDS: Acetylcysteine 10% 2 ML INHSOL IH SCH ×3 (12:22→22:10)
[2020-11-18] MEDS ORDERED: Dexmedetomidine HCl 400 MCG/100 ML MLS IVC ONE (13:43)
[2020-11-18] MEDS ORDERED: Artificial Tears SOLN 15 ML BOTTLE BOTH EYES PRN (14:40)
[2020-11-18] MEDS: FentaNYL (PF) 1,000 MCG/100 ML IV.SOLN IVC SCH (15:11)
[2020-11-18] MEDS: Dexmedetomidine HCl 400 MCG/100 ML MLS IVC SCH (15:12)
[2020-11-18] MEDS ORDERED: *HR* Midazolam HCl 5 MG/5 ML VIAL IVP ONE (15:35)
[2020-11-18] MEDS: Artificial Tears SOLN 15 ML BOTTLE BOTH EYES SCH ×3 (16:06→23:12)
[2020-11-18] MEDS: Chlorhexidine Rinse 15 ML MOUTHWASH MM SCH ×2 (16:11→20:04)
[2020-11-18] MEDS: Pantoprazole 40 MG VIAL IVP SCH (16:12)
[2020-11-18 16:48] LABS: ABG Base Excess 6 mEq/L (-2 to 3); ABG HCO3 33 mEq/L (21-27); ABG Oxygen Saturation 88 % (95-98); ABG PCO2 62 mmHg (35-45); ABG PH 7.33 pH Units (7.32-7.45); ABG PO2 61 mmHg (85-104); ABG TCO2 35 mEq/L (20-26); Blood Gas VT 400 cc
[2020-11-18] MEDS: *HR* Heparin 5,000 UNIT/ML VIAL SQ SCH (18:21)
[2020-11-18] MEDS: Norepinephrine 4 MG/254 ML IV.SOLN IVC SCH (19:09)
[2020-11-18] MEDS: Melatonin 3 MG TABLET PO SCH (20:04)
[2020-11-18 20:49] LABS: Appearance of Body Fluid Cloudy (Clear); Volume of Body Fluid 25 mL
[2020-11-19] MEDS: FentaNYL (PF) 1,000 MCG/100 ML IV.SOLN IVC SCH ×3 (00:10→21:32)
[2020-11-19] MEDS: Dexmedetomidine HCl 400 MCG/100 ML MLS IVC SCH ×2 (01:59→14:48)
[2020-11-19 02:19] LABS: Basophils % 0.2 %; Hematocrit 22.4 % (35.3-44.9); Hemoglobin 7.2 g/dL (11.5-15.4); Immature Granulocytes % 0.5 % (0-4); Lymphocytes # 0.6 K/mcL (0.6-4.6); Lymphocytes % 9.9 %; Mean Corpuscular HGB Conc 32.1 g/dL (31.6-35.5); Mean Corpuscular Hemoglobin 31.3 pg (28.0-33.3); Mean Corpuscular Volume 97.4 fL (83.0-100.0); Mean Platelet Volume 10.6 fL (9.4-12.4); Monocytes # 0.3 K/mcL (0.0-1.3); Monocytes % 4.6 %; Platelet Count 225 K/mcL (140-400); Red Cell Distribution Width 15.2 % (11.5-14.5); Segmented Neutrophils % 84.8 %; White Blood Count 6.3 K/mcL (4.3-11.1)
[2020-11-19 02:23] LABS: Neutrophils # 5.3 K/mcL (1.6-8.9)
[2020-11-19 02:39] LABS: BUN/Creatinine Ratio 22 (6-26); Blood Urea Nitrogen 19 mg/dL (8-23); Carbon Dioxide 34 mEq/L (23-29); Chloride 95 mEq/L (98-107); Glucose 168 mg/dL (70-105); Osmolality,Calculated 286 (280-300); Potassium 3.4 mEq/L (3.5-5.1); Sodium 135 mEq/L (136-145); eGFR For African Americans > 60 (> 60); eGFR For Non-African Americans > 60 (> 60)
[2020-11-19 02:40] LABS: Calcium 8.6 mg/dL (8.6-10.3)
[2020-11-19 02:46] LABS: Platelet Estimate Normal (Normal); Toxic Granulation Present (Not Present)
[2020-11-19 02:47] LABS: Reactive Lymphocytes Present (Not Present)
[2020-11-19] MEDS: Artificial Tears SOLN 15 ML BOTTLE BOTH EYES SCH ×6 (03:13→23:27)
[2020-11-19] MEDS: Acetylcysteine 10% 2 ML INHSOL IH SCH ×4 (04:21→22:47)
[2020-11-19] MEDS: Ipratropium/Albuterol Neb 3 ML IH SCH ×4 (04:21→22:47)
[2020-11-19 05:07] LABS: ABG Base Excess 8 mEq/L (-2 to 3); ABG HCO3 34 mEq/L (21-27); ABG Oxygen Saturation 89 % (95-98); ABG PCO2 61 mmHg (35-45); ABG PH 7.36 pH Units (7.32-7.45); ABG PO2 62 mmHg (85-104); ABG TCO2 36 mEq/L (20-26); Blood Gas Modality ASSIST CONTROL; Blood Gas VT 400 cc
[2020-11-19] MEDS: *HR* Heparin 5,000 UNIT/ML VIAL SQ SCH ×2 (05:42→18:34)
[2020-11-19] MEDS: carvediloL 6.25 MG TABLET PO SCH ×2 (07:16→16:40)
[2020-11-19] MEDS: Famotidine 20 MG TABLET PO SCH (07:16)
[2020-11-19] MEDS: Isosorbide MONOnitrate (24 HR) 30 MG TAB.ER.24H PO SCH (07:17)
[2020-11-19] MEDS: Furosemide 40 MG/4 ML VIAL IVP SCH ×2 (07:17→16:40)
[2020-11-19] MEDS: Loratadine 10 MG TABLET PO SCH (07:17)
[2020-11-19] MEDS: Pantoprazole 40 MG VIAL IVP SCH (07:17)
[2020-11-19] MEDS: MethylPREDNISolone 40 MG/ML VIAL IVP SCH ×3 (07:17→23:29)
[2020-11-19] MEDS: Aspirin 81 MG TAB.CHEW PO SCH (07:17)
[2020-11-19] MEDS: BuPROPion XL (24 HR) 150 MG TABLET PO SCH (07:17)
[2020-11-19] MEDS: levoFLOXacin 750 MG/150 ML 750 MG/150 ML BAG IVPB SCH (07:18)
[2020-11-19] MEDS: Chlorhexidine Rinse 15 ML MOUTHWASH MM SCH ×2 (07:18→20:03)
[2020-11-19] MEDS: Budesonide/Formoterol 160/4.5 1 PUFF INH IH SCH ×2 (10:35→22:47)
[2020-11-19] MEDS: Tiotropium 10 INH DOSE IH SCH (10:37)
[2020-11-19] MEDS: Melatonin 3 MG TABLET PO SCH (20:04)
[2020-11-20] MEDS: Artificial Tears SOLN 15 ML BOTTLE BOTH EYES SCH ×4 (03:17→15:18)
[2020-11-20 03:45] LABS: Basophils % 0.1 %; Hematocrit 23.6 % (35.3-44.9); Hemoglobin 7.5 g/dL (11.5-15.4); Immature Granulocytes % 2.2 % (0-4); Lymphocytes # 0.9 K/mcL (0.6-4.6); Lymphocytes % 10.2 %; Mean Corpuscular HGB Conc 31.8 g/dL (31.6-35.5); Mean Corpuscular Hemoglobin 31.1 pg (28.0-33.3); Mean Corpuscular Volume 97.9 fL (83.0-100.0); Mean Platelet Volume 10.7 fL (9.4-12.4); Monocytes # 0.5 K/mcL (0.0-1.3); Monocytes % 6.4 %; Neutrophils # 6.9 K/mcL (1.6-8.9); Platelet Count 244 K/mcL (140-400); Red Blood Count 2.41 M/mcL (3.82-4.97); Red Cell Distribution Width 15.2 % (11.5-14.5); Segmented Neutrophils % 81.1 %; White Blood Count 8.5 K/mcL (4.3-11.1)
[2020-11-20 04:05] LABS: BUN/Creatinine Ratio 24 (6-26); Blood Urea Nitrogen 20 mg/dL (8-23); Calcium 8.8 mg/dL (8.6-10.3); Carbon Dioxide 37 mEq/L (23-29); Chloride 93 mEq/L (98-107); Glucose 162 mg/dL (70-105); Osmolality,Calculated 290 (280-300); Potassium 3.1 mEq/L (3.5-5.1); Sodium 137 mEq/L (136-145); eGFR For African Americans > 60 (> 60); eGFR For Non-African Americans > 60 (> 60)
[2020-11-20] MEDS: Acetylcysteine 10% 2 ML INHSOL IH SCH ×4 (04:14→22:10)
[2020-11-20] MEDS: Ipratropium/Albuterol Neb 3 ML IH SCH ×4 (04:14→22:10)
[2020-11-20 04:40] LABS: ABG Base Excess 8 mEq/L (-2 to 3); ABG HCO3 36 mEq/L (21-27); ABG Oxygen Saturation 95 % (95-98); ABG PCO2 67 mmHg (35-45); ABG PH 7.34 pH Units (7.32-7.45); ABG PO2 81 mmHg (85-104); ABG TCO2 38 mEq/L (20-26); Blood Gas Modality ASSIST CONTROL; Blood Gas VT 400 cc
[2020-11-20] MEDS: Norepinephrine 4 MG/254 ML IV.SOLN IVC SCH ×2 (05:36→15:18)
[2020-11-20] MEDS: *HR* Heparin 5,000 UNIT/ML VIAL SQ SCH ×2 (05:37→17:36)
[2020-11-20] MEDS ORDERED: Potassium Chloride Elixir 20 MEQ/15 ML UDC GTUBE ONE (05:50)
[2020-11-20] MEDS: Chlorhexidine Rinse 15 ML MOUTHWASH MM SCH (07:58)
[2020-11-20] MEDS: Furosemide 40 MG/4 ML VIAL IVP SCH (07:59)
[2020-11-20] MEDS: MethylPREDNISolone 40 MG/ML VIAL IVP SCH (07:59)
[2020-11-20] MEDS: Pantoprazole 40 MG VIAL IVP SCH (07:59)
[2020-11-20] MEDS: Loratadine 10 MG TABLET PO SCH (08:00)
[2020-11-20] MEDS: carvediloL 6.25 MG TABLET PO SCH ×2 (08:00→17:36)
[2020-11-20] MEDS: levoFLOXacin 750 MG/150 ML 750 MG/150 ML BAG IVPB SCH (08:01)
[2020-11-20] MEDS: Aspirin 81 MG TAB.CHEW PO SCH (08:01)
[2020-11-20] MEDS: Isosorbide MONOnitrate (24 HR) 30 MG TAB.ER.24H PO SCH (08:02)
[2020-11-20] MEDS: Dexmedetomidine HCl 400 MCG/100 ML MLS IVC SCH ×3 (08:02→15:18)
[2020-11-20] MEDS: BuPROPion XL (24 HR) 150 MG TABLET PO SCH (08:03)
[2020-11-20] MEDS: Famotidine 20 MG TABLET PO SCH (08:03)
[2020-11-20] MEDS: Tiotropium 10 INH DOSE IH SCH (10:52)
[2020-11-20] MEDS: Budesonide/Formoterol 160/4.5 1 PUFF INH IH SCH ×2 (10:54→22:10)
[2020-11-20] MEDS: *HR* HYDROcodone/Acet 10/325 mg TABLET PO PRN ×2 (11:38→17:36)
[2020-11-20] MEDS: Morphine Sulfate ER (12 HR) 15 MG TABLET.ER PO SCH (17:36)
[2020-11-20] MEDS: Melatonin 3 MG TABLET PO SCH (20:16)
[2020-11-21] MEDS: Dexmedetomidine HCl 400 MCG/100 ML MLS IVC SCH ×2 (01:24→09:50)
[2020-11-21] MEDS: Acetylcysteine 10% 2 ML INHSOL IH SCH ×4 (04:12→22:05)
[2020-11-21] MEDS: Ipratropium/Albuterol Neb 3 ML IH SCH ×4 (04:12→22:05)
[2020-11-21 04:59] LABS: Hematocrit 27.6 % (35.3-44.9); Hemoglobin 8.7 g/dL (11.5-15.4); Mean Corpuscular HGB Conc 31.5 g/dL (31.6-35.5); Mean Corpuscular Hemoglobin 31.3 pg (28.0-33.3); Mean Corpuscular Volume 99.3 fL (83.0-100.0); Mean Platelet Volume 10.9 fL (9.4-12.4); Platelet Count 276 K/mcL (140-400); Red Blood Count 2.78 M/mcL (3.82-4.97); Red Cell Distribution Width 15.4 % (11.5-14.5)
[2020-11-21 05:00] LABS: Nucleated Red Blood Cells 0.1 /100 WBC (0)
[2020-11-21 05:16] LABS: BUN/Creatinine Ratio 31 (6-26); Blood Urea Nitrogen 28 mg/dL (8-23); Calcium 9.2 mg/dL (8.6-10.3); Carbon Dioxide 39 mEq/L (23-29); Chloride 96 mEq/L (98-107); Glucose 102 mg/dL (70-105); Osmolality,Calculated 296 (280-300); Sodium 140 mEq/L (136-145); eGFR For African Americans > 60 (> 60); eGFR For Non-African Americans > 60 (> 60)
[2020-11-21] MEDS ORDERED: Potassium Chloride Elixir 20 MEQ/15 ML UDC PO ONE ×2 (05:26→13:44)
[2020-11-21 05:55] LABS: Anisocytosis 1+ (Not Present); Lymphocytes # 3.8 K/mcL (0.6-4.6); Monocytes # 0.6 K/mcL (0.0-1.3); Neutrophils # 9.9 K/mcL (1.6-8.9); Platelet Estimate Normal (Normal); Smudge Cells Present (Not Present)
[2020-11-21] MEDS: *HR* Heparin 5,000 UNIT/ML VIAL SQ SCH ×2 (05:59→17:04)
[2020-11-21] MEDS: Morphine Sulfate ER (12 HR) 15 MG TABLET.ER PO SCH ×2 (05:59→17:06)
[2020-11-21] MEDS: carvediloL 6.25 MG TABLET PO SCH ×2 (08:13→17:03)
[2020-11-21] MEDS: BuPROPion XL (24 HR) 150 MG TABLET PO SCH (08:13)
[2020-11-21] MEDS: Aspirin 81 MG TAB.CHEW PO SCH (08:13)
[2020-11-21] MEDS: Isosorbide MONOnitrate (24 HR) 30 MG TAB.ER.24H PO SCH (08:13)
[2020-11-21] MEDS: Loratadine 10 MG TABLET PO SCH (08:13)
[2020-11-21] MEDS: Famotidine 20 MG TABLET PO SCH (08:13)
[2020-11-21] MEDS: Furosemide 40 MG/4 ML VIAL IVP SCH (08:16)
[2020-11-21] MEDS: MethylPREDNISolone 40 MG/ML VIAL IVP SCH (08:16)
[2020-11-21] MEDS: levoFLOXacin 750 MG/150 ML 750 MG/150 ML BAG IVPB SCH (08:16)
[2020-11-21] MEDS: Tiotropium 10 INH DOSE IH SCH (09:35)
[2020-11-21] MEDS: Budesonide/Formoterol 160/4.5 1 PUFF INH IH SCH ×2 (09:37→22:05)
[2020-11-21 11:55] LABS: Influenza A PCR Body Fluid NOT DETECTED; Influenza B PCR Body Fluid NOT DETECTED
[2020-11-21 13:24] LABS: RSV PCR Body Fluid NOT DETECTED; RVP Body Fluid Source NOT PROVIDED
[2020-11-21] MEDS: *HR* HYDROcodone/Acet 10/325 mg TABLET PO PRN (14:06)
[2020-11-21] MEDS ORDERED: *HR* LORazepam 1 MG TABLET PO PRN (14:10)
[2020-11-21] MEDS: Melatonin 3 MG TABLET PO SCH (20:25)
[2020-11-22 03:54] LABS: VBG Ionized Calcium 1.21 mmol/L (1.15-1.35)
[2020-11-22 03:56] LABS: Hematocrit 29.5 % (35.3-44.9); Mean Corpuscular HGB Conc 30.5 g/dL (31.6-35.5); Mean Corpuscular Hemoglobin 30.5 pg (28.0-33.3); Mean Platelet Volume 10.5 fL (9.4-12.4); Nucleated Red Blood Cells 0.1 /100 WBC (0); Platelet Count 276 K/mcL (140-400); Red Blood Count 2.95 M/mcL (3.82-4.97); Red Cell Distribution Width 15.8 % (11.5-14.5); White Blood Count 21.9 K/mcL (4.3-11.1)
[2020-11-22 04:11] LABS: Alanine Aminotransferase 10 Units/L (7-52); Albumin 3.2 g/dL (3.5-5.7); Albumin/Globulin Ratio 1.2 (1.1-2.2); Alkaline Phosphatase 66 Units/L (34-104); Aspartate Amino Transferase 13 Units/L (13-39); BUN/Creatinine Ratio 36 (6-26); Bilirubin,Total 0.4 mg/dL (0.3-1.0); Blood Urea Nitrogen 32 mg/dL (8-23); Calcium 9.2 mg/dL (8.6-10.3); Carbon Dioxide 35 mEq/L (23-29); Chloride 98 mEq/L (98-107); Globulin 2.6 g/dL (2.4-3.5); Glucose 110 mg/dL (70-105); Magnesium 1.8 mg/dL (1.6-2.6); Osmolality,Calculated 296 (280-300); Phosphorous 2.9 mg/dL (2.7-4.5); Potassium 3.3 mEq/L (3.5-5.1); Sodium 139 mEq/L (136-145); Total Protein 5.8 g/dL (6.4-8.9); eGFR For African Americans > 60 (> 60); eGFR For Non-African Americans > 60 (> 60)
[2020-11-22] MEDS: Ipratropium/Albuterol Neb 3 ML IH SCH ×4 (04:21→21:13)
[2020-11-22] MEDS: Acetylcysteine 10% 2 ML INHSOL IH SCH ×4 (04:21→21:13)
[2020-11-22 04:36] LABS: Lymphocytes # 1.8 K/mcL (0.6-4.6); Monocytes # 0.9 K/mcL (0.0-1.3)
[2020-11-22 04:37] LABS: Anisocytosis 1+ (Not Present); Platelet Estimate Normal (Normal); Reactive Lymphocytes Present (Not Present); Smudge Cells Present (Not Present)
[2020-11-22] MEDS ORDERED: Potassium Chloride Elixir 20 MEQ/15 ML UDC PO ONE (05:24)
[2020-11-22] MEDS: Morphine Sulfate ER (12 HR) 15 MG TABLET.ER PO SCH ×2 (05:24→18:10)
[2020-11-22] MEDS: *HR* Heparin 5,000 UNIT/ML VIAL SQ SCH ×2 (05:25→18:10)
[2020-11-22] MEDS: Famotidine 20 MG TABLET PO SCH (07:43)
[2020-11-22] MEDS: Isosorbide MONOnitrate (24 HR) 30 MG TAB.ER.24H PO SCH (07:43)
[2020-11-22] MEDS: Loratadine 10 MG TABLET PO SCH (07:43)
[2020-11-22] MEDS: BuPROPion XL (24 HR) 150 MG TABLET PO SCH (07:43)
[2020-11-22] MEDS: Aspirin 81 MG TAB.CHEW PO SCH (07:43)
[2020-11-22] MEDS: Furosemide 40 MG/4 ML VIAL IVP SCH (07:44)
[2020-11-22] MEDS: carvediloL 6.25 MG TABLET PO SCH ×3 (07:44→21:20)
[2020-11-22] MEDS: MethylPREDNISolone 40 MG/ML VIAL IVP SCH (07:44)
[2020-11-22] MEDS: levoFLOXacin 750 MG/150 ML 750 MG/150 ML BAG IVPB SCH (07:53)
[2020-11-22] MEDS: Tiotropium 10 INH DOSE IH SCH (08:17)
[2020-11-22] MEDS: *HR* HYDROcodone/Acet 10/325 mg TABLET PO PRN (09:34)
[2020-11-22] MEDS: Budesonide/Formoterol 160/4.5 1 PUFF INH IH SCH ×2 (10:32→21:13)
[2020-11-22] MEDS ORDERED: amLODIPine 5 MG TABLET PO ONE (15:49)
[2020-11-22] MEDS: Melatonin 3 MG TABLET PO SCH (21:18)
[2020-11-23 01:44] LABS: Hematocrit 30.1 % (35.3-44.9); Hemoglobin 9.2 g/dL (11.5-15.4); Mean Corpuscular HGB Conc 30.6 g/dL (31.6-35.5); Mean Corpuscular Hemoglobin 30.2 pg (28.0-33.3); Mean Corpuscular Volume 98.7 fL (83.0-100.0); Nucleated Red Blood Cells 0.1 /100 WBC (0); Platelet Count 301 K/mcL (140-400); Red Blood Count 3.05 M/mcL (3.82-4.97); Red Cell Distribution Width 15.6 % (11.5-14.5); White Blood Count 26.7 K/mcL (4.3-11.1)
[2020-11-23 02:03] LABS: BUN/Creatinine Ratio 32 (6-26); Blood Urea Nitrogen 31 mg/dL (8-23); Calcium 9.2 mg/dL (8.6-10.3); Carbon Dioxide 33 mEq/L (23-29); Chloride 98 mEq/L (98-107); Glucose 128 mg/dL (70-105); Magnesium 2.2 mg/dL (1.6-2.6); Osmolality,Calculated 296 (280-300); Phosphorous 3.8 mg/dL (2.7-4.5); Potassium 3.5 mEq/L (3.5-5.1); Sodium 139 mEq/L (136-145); eGFR For African Americans > 60 (> 60); eGFR For Non-African Americans 57 (> 60)
[2020-11-23 02:14] LABS: Lymphocytes # 4.8 K/mcL (0.6-4.6); Monocytes # 3.2 K/mcL (0.0-1.3); Neutrophils # 18.2 K/mcL (1.6-8.9)
[2020-11-23 02:15] LABS: Platelet Estimate Normal (Normal); Reactive Lymphocytes Present (Not Present)
[2020-11-23] MEDS: Ipratropium/Albuterol Neb 3 ML IH SCH ×2 (03:26→10:51)
[2020-11-23] MEDS: Acetylcysteine 10% 2 ML INHSOL IH SCH ×2 (03:26→10:51)
[2020-11-23] MEDS: *HR* Heparin 5,000 UNIT/ML VIAL SQ SCH (05:14)
[2020-11-23] MEDS: Morphine Sulfate ER (12 HR) 15 MG TABLET.ER PO SCH (05:17)
[2020-11-23] MEDS: carvediloL 6.25 MG TABLET PO SCH (08:58)
[2020-11-23] MEDS: Loratadine 10 MG TABLET PO SCH (08:58)
[2020-11-23] MEDS: BuPROPion XL (24 HR) 150 MG TABLET PO SCH (08:58)
[2020-11-23] MEDS: Isosorbide MONOnitrate (24 HR) 30 MG TAB.ER.24H PO SCH (08:58)
[2020-11-23] MEDS: Famotidine 20 MG TABLET PO SCH (08:58)
[2020-11-23] MEDS: Aspirin 81 MG TAB.CHEW PO SCH (08:58)
[2020-11-23] MEDS: Furosemide 40 MG/4 ML VIAL IVP SCH (08:58)
[2020-11-23] MEDS ORDERED: predniSONE 20 MG TABLET PO SCH (09:00)
[2020-11-23] MEDS: Budesonide/Formoterol 160/4.5 1 PUFF INH IH SCH (10:50)
[2020-11-23] MEDS: Tiotropium 10 INH DOSE IH SCH (10:51)
[2020-11-23 11:47] VITALS: BP 122/58; PULSE 69; TEMP 97.4; O2SAT 100
== END 2020-11-23 12:51 | disposition home health service (06) | DRG 208 ==
LOC: 2NENU 13:40 → EMEROOARM 13:40 → SUATTDRO 18:00 → 2NENU 19:55 → ICNU 11-18 14:12 → CDU 11-22 10:07
PROVIDERS: ADMIT Internal Medicine; ATTEND Internal Medicine

== ENCOUNTER 2021-02-14 09:50 | Observation (INO) ==
[2021-02-14 12:31] LABS: Influenza A PCR Negative (Negative); Influenza B PCR Negative (Negative); Resp. Syncytial Virus PCR Negative (Negative); SARS-CoV-2 by PCR (In House) Negative (Negative)
[2021-02-14] MEDS ORDERED: *HR* OxyCODONE/APAP 5/325 TABLET PO ONE (13:11)
[2021-02-14] MEDS ORDERED: *HR* OxyCODONE/APAP 5/325 TABLET PO STA (18:19)
[2021-02-14] MEDS ORDERED: *HR* HYDROcodone/Acet 5/325 mg TABLET PO PRN (23:14)
[2021-02-14] MEDS ORDERED: Naloxone 0.4 MG/ML INJ IVP PRN (23:14)
[2021-02-14] MEDS ORDERED: Ondansetron 4 MG/2 ML VIAL IVP PRN (23:14)
[2021-02-14] MEDS ORDERED: Acetaminophen 325 MG TABLET PO PRN (23:14)
[2021-02-15] MEDS ORDERED: D5% in Water 1,000 ML IVC PRN (00:21)
[2021-02-15] MEDS ORDERED: *HR* Dextrose 50 % in Water (Syg) 50 ML SYRINGE IVP PRN (00:21)
[2021-02-15] MEDS ORDERED: Dextrose Gel 15 GM/37.5 ML TUBE PO PRN ×2 (00:21)
[2021-02-15] MEDS ORDERED: *HR* LORazepam 1 MG TABLET PO PRN (00:22)
[2021-02-15] MEDS: *HR* OxyCODONE Immed Rel 5 MG TABLET PO PRN ×2 (01:14→20:20)
[2021-02-15 05:10] LABS: Basophils # 0.1 K/mcL (0.0-0.2); Basophils % 0.5 %; Eosinophils # 0.9 K/mcL (0.0-0.6); Hemoglobin 9.4 g/dL (11.5-15.4); Immature Granulocytes % 0.3 % (0-4); Lymphocytes # 3.3 K/mcL (0.6-4.6); Lymphocytes % 30.4 %; Mean Corpuscular HGB Conc 30.3 g/dL (31.6-35.5); Mean Corpuscular Volume 95.7 fL (83.0-100.0); Mean Platelet Volume 10.2 fL (9.4-12.4); Monocytes # 0.7 K/mcL (0.0-1.3); Monocytes % 6.8 %; Neutrophils # 5.8 K/mcL (1.6-8.9); Platelet Count 299 K/mcL (140-400); Red Blood Count 3.24 M/mcL (3.82-4.97); Red Cell Distribution Width 14.1 % (11.5-14.5); White Blood Count 10.8 K/mcL (4.3-11.1)
[2021-02-15 05:20] LABS: INR 1.1; Prothrombin Time 12.7 Seconds (9.4-12.1)
[2021-02-15 05:30] LABS: BUN/Creatinine Ratio 13 (6-26); Blood Urea Nitrogen 14 mg/dL (8-23); Calcium 8.6 mg/dL (8.6-10.3); Carbon Dioxide 33 mEq/L (23-29); Chloride 101 mEq/L (98-107); Glucose 149 mg/dL (70-105); Magnesium 1.8 mg/dL (1.6-2.6); Osmolality,Calculated 293 (280-300); Phosphorous 4.6 mg/dL (2.7-4.5); Potassium 3.3 mEq/L (3.5-5.1); Sodium 140 mEq/L (136-145); eGFR For African Americans > 60 (> 60); eGFR For Non-African Americans 51 (> 60)
[2021-02-15] MEDS ORDERED: Famotidine 20 MG TABLET PO SCH (07:30)
[2021-02-15] MEDS ORDERED: Aspirin 81 MG TAB.CHEW PO SCH (09:00)
[2021-02-15] MEDS ORDERED: BuPROPion XL (24 HR) 150 MG TABLET PO SCH (09:00)
[2021-02-15] MEDS ORDERED: Loratadine 10 MG TABLET PO SCH (09:00)
[2021-02-15] MEDS ORDERED: Isosorbide MONOnitrate (24 HR) 30 MG TAB.ER.24H PO SCH (09:00)
[2021-02-15] MEDS ORDERED: Primidone 50 MG TABLET PO SCH (09:00)
[2021-02-15] MEDS: Gabapentin 300 MG CAPSULE PO SCH ×2 (10:12→20:20)
[2021-02-15] MEDS: carvediloL 6.25 MG TABLET PO SCH ×2 (10:12→17:36)
[2021-02-15] MEDS: Budesonide/Formoterol 160/4.5 1 PUFF INH IH SCH ×2 (11:03→22:25)
[2021-02-15] MEDS ORDERED: Gadolinium Contrast Agent (WT Based) IV PRN (12:43)
[2021-02-15 16:02] VITALS: BP 128/59; PULSE 80; TEMP 98.5; O2SAT 94
[2021-02-15] MEDS ORDERED: Mirabegron [Myrbetriq] 50 MG PO SCH (18:00)
[2021-02-15] MEDS ORDERED: *HR* HYDROmorphone (PF) 1 MG/ML SYRINGE IVP ONE (18:57)
[2021-02-15] MEDS ORDERED: Ketorolac 15 MG/ML VIAL IVP ONE (19:04)
[2021-02-15] MEDS ORDERED: Melatonin 3 MG TABLET PO SCH (21:00)
[2021-02-16] MEDS ORDERED: Famotidine 20 MG TABLET PO SCH (07:30)
== END 2021-02-15 21:00 | disposition short-term general hospital (02) ==
LOC: 4WAOSI 09:50 → EMEROOARM 09:50 → SUATTDRO 23:32 → 4WAOSI 02-15 00:08
PROVIDERS: ADMIT Internal Medicine; ATTEND Internal Medicine

== ENCOUNTER 2022-01-07 15:19 | Inpatient (IN) ==
[2022-01-07] MEDS ORDERED: Naloxone 0.4 MG/ML INJ IVP PRN (18:38)
[2022-01-07] MEDS ORDERED: Acetaminophen 325 MG TABLET PO PRN (18:38)
[2022-01-07] MEDS ORDERED: Melatonin 3 MG TABLET PO PRN (18:38)
[2022-01-07] MEDS ORDERED: Ondansetron 4 MG/2 ML VIAL IVP PRN (18:38)
[2022-01-07] MEDS ORDERED: D5% in Water 1,000 ML IVC PRN (18:47)
[2022-01-07] MEDS ORDERED: *HR* Dextrose 50 % in Water (Syg) 50 ML SYRINGE IVP PRN (18:47)
[2022-01-07] MEDS ORDERED: Dextrose Gel 15 GM/37.5 ML TUBE PO PRN ×2 (18:47)
[2022-01-07] MEDS ORDERED: Vancomycin (wt based) 1,000 MG VIAL IVPB SCH (19:00)
[2022-01-07] MEDS ORDERED: Vancomycin 1,250 MG/262.5 ML IV.SOLN IVPB SCH (20:00)
[2022-01-07] MEDS: Insulin LISPRO 300 UNITS/3 ML VIAL SUBQ SCH (20:00)
[2022-01-07] MEDS ORDERED: Insulin LISPRO 300 UNITS/3 ML VIAL SUBQ SCH (21:00)
[2022-01-07] MEDS ORDERED: *HR* OxyCODONE/APAP 10/325 TABLET PO PRN (21:00)
[2022-01-07] MEDS: Gabapentin 300 MG CAPSULE PO SCH (21:16)
[2022-01-07] MEDS: 0.9 % Sodium Chloride 1,000 ML IVC SCH (21:25)
[2022-01-07] MEDS: Budesonide/Formoterol 160/4.5 1 PUFF INH IH SCH (22:49)
[2022-01-07] MEDS: Ipratropium/Albuterol Neb 3 ML IH SCH (22:49)
[2022-01-08] MEDS ORDERED: Cefepime HCl 2,000 MG in 0.9 % Sodium Chloride 10 ML IVP SCH
[2022-01-08] MEDS: Ipratropium/Albuterol Neb 3 ML IH SCH ×4 (04:17→22:56)
[2022-01-08] MEDS: *HR* Heparin 5,000 UNIT/ML VIAL SQ SCH ×2 (05:25→17:54)
[2022-01-08] MEDS: Gabapentin 300 MG CAPSULE PO SCH ×3 (05:25→20:11)
[2022-01-08 05:56] LABS: Basophils # 0.1 K/mcL (0.0-0.2); Basophils % 0.4 %; Eosinophils # 0.3 K/mcL (0.0-0.6); Eosinophils % 2.8 %; Hematocrit 32.7 % (35.3-44.9); Hemoglobin 9.9 g/dL (11.5-15.4); Immature Granulocytes % 0.6 % (0-4); Lymphocytes # 2.4 K/mcL (0.6-4.6); Lymphocytes % 20.1 %; Mean Corpuscular HGB Conc 30.3 g/dL (31.6-35.5); Mean Corpuscular Hemoglobin 29.8 pg (28.0-33.3); Mean Corpuscular Volume 98.5 fL (83.0-100.0); Mean Platelet Volume 10.8 fL (9.4-12.4); Monocytes # 1.4 K/mcL (0.0-1.3); Monocytes % 11.4 %; Neutrophils # 7.8 K/mcL (1.6-8.9); Platelet Count 230 K/mcL (140-400); Red Blood Count 3.32 M/mcL (3.82-4.97); Red Cell Distribution Width 14.6 % (11.5-14.5); Segmented Neutrophils % 64.7 %
[2022-01-08 06:07] LABS: Estimated Average Glucose 103 mg/dl; Hemoglobin A1C 5.2 %
[2022-01-08 06:17] LABS: Calcium 8.6 mg/dL (8.6-10.3); Potassium 3.7 mEq/L (3.5-5.1)
[2022-01-08] MEDS: Primidone 50 MG TABLET PO SCH (08:21)
[2022-01-08] MEDS: BuPROPion XL (24 HR) 150 MG TABLET PO SCH (08:21)
[2022-01-08] MEDS: Spironolactone 12.5 MG TABLET PO SCH (08:21)
[2022-01-08] MEDS: Azithromycin 250 MG TABLET PO SCH (08:22)
[2022-01-08] MEDS: Aspirin 81 MG TAB.CHEW PO SCH (08:27)
[2022-01-08] MEDS ORDERED: Famotidine 20 MG TABLET PO SCH (09:00)
[2022-01-08] MEDS: 0.9 % Sodium Chloride 1,000 ML IVC SCH (09:30)
[2022-01-08] MEDS: cefTRIAXone 1,000 MG in 0.9 % Sodium Chloride 10 ML IVP SCH (09:32)
[2022-01-08] MEDS: Insulin LISPRO 300 UNITS/3 ML VIAL SUBQ SCH ×4 (09:32→20:10)
[2022-01-08] MEDS: Tiotropium 10 INH DOSE IH SCH (11:06)
[2022-01-08] MEDS: Budesonide/Formoterol 160/4.5 1 PUFF INH IH SCH ×2 (11:08→22:56)
[2022-01-08] MEDS ORDERED: *HR* OxyCODONE/APAP 5/325 TABLET PO PRN (13:53)
[2022-01-08] MEDS ORDERED: NON-FORMULARY MEDICATION 1 EACH EACH (Mirabegron [Myrbetriq] 50 MG Tab.Er.24h) PO SCH (18:00)
[2022-01-09] MEDS: Ipratropium/Albuterol Neb 3 ML IH SCH ×4 (04:26→21:37)
[2022-01-09] MEDS: *HR* Heparin 5,000 UNIT/ML VIAL SQ SCH ×2 (05:18→17:32)
[2022-01-09] MEDS: Famotidine 20 MG TABLET PO SCH (05:19)
[2022-01-09 05:47] LABS: Basophils # 0.1 K/mcL (0.0-0.2); Basophils % 0.5 %; Eosinophils # 0.4 K/mcL (0.0-0.6); Eosinophils % 3.4 %; Hematocrit 32.9 % (35.3-44.9); Hemoglobin 10.2 g/dL (11.5-15.4); Immature Granulocytes % 1.4 % (0-4); Lymphocytes # 2.5 K/mcL (0.6-4.6); Lymphocytes % 21.7 %; Mean Corpuscular Hemoglobin 30.6 pg (28.0-33.3); Mean Corpuscular Volume 98.8 fL (83.0-100.0); Mean Platelet Volume 10.5 fL (9.4-12.4); Monocytes # 1.1 K/mcL (0.0-1.3); Monocytes % 9.5 %; Neutrophils # 7.2 K/mcL (1.6-8.9); Platelet Count 231 K/mcL (140-400); Red Blood Count 3.33 M/mcL (3.82-4.97); Red Cell Distribution Width 14.5 % (11.5-14.5); Segmented Neutrophils % 63.5 %; White Blood Count 11.4 K/mcL (4.3-11.1)
[2022-01-09 06:06] LABS: Calcium 9.2 mg/dL (8.6-10.3); Potassium 3.8 mEq/L (3.5-5.1)
[2022-01-09] MEDS: Insulin LISPRO 300 UNITS/3 ML VIAL SUBQ SCH ×4 (07:50→19:52)
[2022-01-09] MEDS: Azithromycin 250 MG TABLET PO SCH (08:29)
[2022-01-09] MEDS: Gabapentin 300 MG CAPSULE PO SCH ×4 (08:29→20:24)
[2022-01-09] MEDS: BuPROPion XL (24 HR) 150 MG TABLET PO SCH (08:29)
[2022-01-09] MEDS: Spironolactone 12.5 MG TABLET PO SCH (08:29)
[2022-01-09] MEDS: Aspirin 81 MG TAB.CHEW PO SCH (08:29)
[2022-01-09] MEDS: Metoprolol XL (24 HR) Succ 25 MG TAB.ER.24H PO SCH (08:29)
[2022-01-09] MEDS: cefTRIAXone 1,000 MG in 0.9 % Sodium Chloride 10 ML IVP SCH (08:29)
[2022-01-09] MEDS: Primidone 50 MG TABLET PO SCH (08:29)
[2022-01-09] MEDS: Budesonide/Formoterol 160/4.5 1 PUFF INH IH SCH ×2 (09:46→21:37)
[2022-01-09] MEDS: Tiotropium 10 INH DOSE IH SCH (10:10)
[2022-01-09] MEDS ORDERED: hydrOXYzine pamoate 25 MG CAPSULE PO PRN (20:27)
[2022-01-10] MEDS: Ipratropium/Albuterol Neb 3 ML IH SCH ×2 (04:29→10:33)
[2022-01-10] MEDS: Famotidine 20 MG TABLET PO SCH (05:32)
[2022-01-10] MEDS: *HR* Heparin 5,000 UNIT/ML VIAL SQ SCH (05:32)
[2022-01-10 05:51] LABS: Basophils # 0.1 K/mcL (0.0-0.2); Basophils % 0.5 %; Eosinophils # 0.6 K/mcL (0.0-0.6); Eosinophils % 4.9 %; Hemoglobin 10.7 g/dL (11.5-15.4); Immature Granulocytes % 2.3 % (0-4); Lymphocytes # 2.3 K/mcL (0.6-4.6); Lymphocytes % 19.3 %; Mean Corpuscular HGB Conc 31.5 g/dL (31.6-35.5); Mean Corpuscular Hemoglobin 30.1 pg (28.0-33.3); Mean Corpuscular Volume 95.8 fL (83.0-100.0); Mean Platelet Volume 10.3 fL (9.4-12.4); Monocytes # 0.9 K/mcL (0.0-1.3); Monocytes % 7.7 %; Neutrophils # 7.7 K/mcL (1.6-8.9); Platelet Count 288 K/mcL (140-400); Red Blood Count 3.55 M/mcL (3.82-4.97); Red Cell Distribution Width 14.5 % (11.5-14.5); Segmented Neutrophils % 65.3 %; White Blood Count 11.8 K/mcL (4.3-11.1)
[2022-01-10 06:10] LABS: Calcium 9.5 mg/dL (8.6-10.3); Potassium 3.9 mEq/L (3.5-5.1)
[2022-01-10 07:49] VITALS: BP 142/67; PULSE 90; TEMP 98.2
[2022-01-10] MEDS: Tiotropium 10 INH DOSE IH SCH (07:59)
[2022-01-10] MEDS: Gabapentin 300 MG CAPSULE PO SCH (08:45)
[2022-01-10] MEDS: Primidone 50 MG TABLET PO SCH (08:45)
[2022-01-10] MEDS: Azithromycin 250 MG TABLET PO SCH (08:45)
[2022-01-10] MEDS: Aspirin 81 MG TAB.CHEW PO SCH (08:45)
[2022-01-10] MEDS: Metoprolol XL (24 HR) Succ 25 MG TAB.ER.24H PO SCH (08:45)
[2022-01-10] MEDS: Insulin LISPRO 300 UNITS/3 ML VIAL SUBQ SCH ×2 (08:45→11:21)
[2022-01-10] MEDS: cefTRIAXone 1,000 MG in 0.9 % Sodium Chloride 10 ML IVP SCH (08:45)
[2022-01-10] MEDS: BuPROPion XL (24 HR) 150 MG TABLET PO SCH (08:45)
[2022-01-10] MEDS: Spironolactone 12.5 MG TABLET PO SCH (08:45)
[2022-01-10] MEDS: Budesonide/Formoterol 160/4.5 1 PUFF INH IH SCH (10:32)
[2022-01-10 10:34] VITALS: O2SAT 92
== END 2022-01-10 14:53 | disposition home or self-care (01) | DRG 871 ==
LOC: 2NENU → SUATTDRO 17:43
PROVIDERS: ADMIT Internal Medicine; ATTEND Internal Medicine